=== PATIENT | female | born 1990 | race American Indian/Alaskan Native ===

== ENCOUNTER 2017-01-04 02:33 | Outpatient (CLI) | payer MEDICAID ==
[2017-01-04 02:55] VITALS: BP 116/73
[2017-01-04] MEDS ORDERED: LACTATED RINGERS 1,000 ML IV ONE (03:32)
[2017-01-04] MEDS ORDERED: TYLENOL PO PRN (03:32)
--- NOTE | 2017-01-04 08:13 | Ultrasound Report ---
BIOPHYSICAL PROFILE: INDICATION: Evaluate for abruption. COMPARISON: None similar. TECHNIQUE: Transabdominal ultrasound with Doppler interrogation. 2 - breathing movements 2 - movements 2 - posture and tone 2 - Qualitative amniotic fluid volume 8 - TOTAL SCORE OF POSSIBLE 8 Heart Rate (bpm) 138
--- NOTE | 2017-01-04 08:17 | Ultrasound Report ---
OB LIMITED INDICATION: Evaluate for abruption. COMPARISON: 02/24/2016 TECHNIQUE: Transabdominal grayscale ultrasound with Doppler interrogation. Gestation: Silva Position: Cephalic Amniotic Fluid: Decreased (< 7 cm) JOANNA = 6.8 cm Placenta: Anterior; no evidence of abruption. Placental Grade: I Heart Rate: 131 BPM
== END 2017-01-04 08:30 | disposition home or self-care (01) ==
LOC: TRG 02:33 → LD 04:56 → TRG 08:30
PROVIDERS: ATTEND Obstetrics & Gynecology
DX: Z34.93 Encounter for supervision of normal pregnancy, unspecified, third trimester (principal); Z3A.37 37 weeks gestation of pregnancy
CPT/HCPCS: 59025; 76815; 76819; 96360; J7120

== ENCOUNTER 2017-01-04 08:56 | Emergency (ER) | payer MEDICAID ==
[2017-01-04 09:13] VITALS: BP 118/77
[2017-01-04] MEDS ORDERED: TYLENOL PO ONE (11:15)
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
[2017-01-04] MEDS ORDERED: MORPHINE IV ONE (12:34)
[2017-01-04] MEDS ORDERED: ZOFRAN IV ONE (12:34)
[2017-01-04] MEDS ORDERED: FUL-GLO OP ONE (13:51)
[2017-01-04] MEDS ORDERED: TETRACAINE 0.5% OU ONE (13:51)
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
== END 2017-01-04 15:36 | disposition home or self-care (01) ==
LOC: ED 08:56
DX: O9A.22 Injury, poisoning and certain other consequences of external causes complicating childbirth (principal); H11.31 Conjunctival hemorrhage, right eye; S00.11XA Contusion of right eyelid and periocular area, initial encounter; Z3A.32 32 weeks gestation of pregnancy; Y04.8XXA Assault by other bodily force, initial encounter; Y93.89 Activity, other specified; Y92.89 Other specified places as the place of occurrence of the external cause; Y99.8 Other external cause status
CPT/HCPCS: 70150; 96374; 96375; 99283; J2270; J2405

== ENCOUNTER 2017-01-15 22:56 | Inpatient (IN) | payer MEDICAID ==
[2017-01-15] MEDS ORDERED: LACTATED RINGERS 1,000 ML ONE (23:46)
[2017-01-15] MEDS ORDERED: POLYCILLIN/NS 2 GM/100 ML 2 GM/100 ML BAG IV ONE (23:47)
[2017-01-15] MEDS ORDERED: STADOL ONE (23:49)
[2017-01-15] MEDS ORDERED: POLYCILLIN IM ONE (23:59)
[2017-01-16] MEDS ORDERED: STADOL IV PRN (00:02)
[2017-01-16 00:19] LABS: Hematocrit 33.1 % (30.3-42.9); Hemoglobin 10.5 gm/dl (10.1-14.3); Mean Corpuscular HGB Conc 32 % (30-34); Mean Corpuscular Hemoglobin 26 pg (28-32); Mean Corpuscular Volume 84 fl (79-97); Platelet Count 265 K/mm3 (140-440); Red Blood Count 3.96 M/mm3 (3.65-5.03); Red Cell Distribution Width 15.7 % (13.2-15.2); White Blood Count 10.5 K/mm3 (4.5-11.0)
[2017-01-16] MEDS ORDERED: XYLOCAINE 2% INFILTRATI ONE (00:22)
[2017-01-16] MEDS ORDERED: BRETHINE IVP PRN (00:22)
[2017-01-16] MEDS ORDERED: SUBLIMAZE IV PRN (00:22)
[2017-01-16] MEDS ORDERED: NARCAN 0.4 MG/1 ML IV PRN ×3 (00:22→05:25)
[2017-01-16] MEDS ORDERED: PHENERGAN PO PRN (00:22)
[2017-01-16] MEDS ORDERED: NUBAIN IV PRN (00:22)
[2017-01-16] MEDS ORDERED: ZOFRAN IV PRN ×2 (00:22→05:25)
[2017-01-16] MEDS ORDERED: BRETHINE SUB-Q PRN (00:22)
[2017-01-16] MEDS ORDERED: MINERAL OIL PO PRN (00:22)
--- NOTE | 2017-01-16 00:34 | History and Physical Report ---
History of Present Illness Date of examination: 01/16/17 Date of admission: 01/15/17 23:12 Chief complaint: contractions History of present illness: This is a 26 yo at 39+ 2 weeks came in c/o contractions since 8pm. she has good fm no vb no leaking. no other complaints. She was checked by nurse and noted to be 5/80/-2. She was admitted to labor and delivery. 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 denies: smoking, alcohol abuse, prescription drug abuse - Obstetrical History Expected Date of Delivery: 01/18/17 Actual Gestation: 39 Week(s) 5 Day(s) : 4 Para: 1 Hx # Term Pregnancies: 1 Number of Pregnancies: 0 Spontaneous Abortions: 1 Induced : 1 Number of Living Children: 1 Medications and Allergies Allergies Allergy/AdvReac Type Severity Reaction Status Date / Time No Known Allergies Allergy Unverified 06/23/13 14:09 Home Medications Medication Instructions Recorded Confirmed Last Taken Type Nitrofurantoin [place]/M-Cryst 100 mg PO Q12HR #20 capsule 02/24/16 Unknown Rx [Macrobid CAP] Acetaminophen [Non-Aspirin Pain 500 mg PO Q8H PRN #12 tablet 01/04/17 Unknown Rx Relief] Active Meds: Active Medications Butorphanol Tartrate (Stadol) 2 mg IV Q2H PRN PRN Reason: Labor Pain Lactated Ringer's (Lactated Ringers) 1,000 mls @ 125 mls/hr IV DIRECT ADRY Review of Systems Genitourinary: contractions - Vital Signs Vital signs: Vital Signs Pulse BP Pulse Ox 119 H 111/71 96 01/15/17 23:14 01/15/17 23:14 01/15/17 23:14 Temp Pulse Resp BP Pulse Ox 119 H 24 111/71 96 01/15/17 23:14 01/15/17 23:55 01/15/17 23:14 01/15/17 23:14 - Physical Exam Breasts: Positive: deferred, normal Cardiovascular: Regular rate, Normal S1 Lungs: Positive: Clear to auscultation, Normal air movement Abdomen: Positive: normal appearance, soft, normal bowel sounds. Negative: distention, tenderness, guarding Genitourinary (Female): Positive: normal external genitalia, normal perenium Vulva: both: normal Vagina: Positive: normal moisture Uterus: Positive: normal size, enlarged Anus/Rectum: Positive: normal perianal skin, heme negative Extremities: Positive: normal. Negative: tenderness, edema Deep Tendon Reflex Grade: Normal +2 - Obstetrical FHR: category 1 Uterine Contraction Monitor Mode: External Cervical Dilatation: 5 Cervical Effacement Percentage: 80 station: -2 Uterine Contraction Pattern: Regular Uterine Tone Measurement Phase: Contraction Uterine Contraction Intensity: Moderate Results Result Diagrams: 01/15/17 23:30 Abnormal lab results 01/15/17 Range/Units 23:30 MCH 26 L (28-32) pg RDW 15.7 H (13.2-15.2) % All other labs normal. Assessment and Plan A/P IUP 39+2 weeks, term Active labor No evidence of HSV outbreak nor lesions GBS+ Amp initiated Offer epidural Expect vaginal delivery
[2017-01-16] MEDS ORDERED: ePHEDrine SULFATE ONE ×2 (00:54→01:59)
[2017-01-16] MEDS ORDERED: PITOCin/NS 30 UNIT/500ML 30 UNITS/500 ML BAG IV SCH ×2 (01:00)
[2017-01-16] MEDS ORDERED: PITOCin/NS 20 UNIT/1000ML DRIP 20 UNITS/1,000 ML BAG IV SCH ×3 (01:00→06:00)
[2017-01-16] MEDS ORDERED: LACTATED RINGERS 1,000 ML IV SCH ×3 (01:00→06:00)
[2017-01-16] MEDS ORDERED: NARCAN 2 MG/2 ML IV PRN (01:24)
[2017-01-16] MEDS ORDERED: ePHEDrine SULFATE IV PRN (01:24)
--- NOTE | 2017-01-16 01:24 | Anesthesia Consultation ---
Anesthesia Consult and Med Hx Date of service: 01/16/17 - Airway Anesthetic Teeth Evaluation: Good ROM Head & Neck: Adequate Mental/Hyoid Distance: Adequate Mallampati Class: Class II Intubation Access Assessment: Probably Good - Pulmonary Exam CTA: Yes - Cardiac Exam Cardiac Exam: RRR - Pre-Operative Health Status ASA Pre-Surgery Classification: ASA2 Proposed Anesthetic Plan: Epidural, Spinal - Pulmonary Hx Asthma: No COPD: No Hx Pneumonia: No - Cardiovascular System Hx Hypertension: No - Central Nervous System Hx Seizures: No Hx Psychiatric Problems: No - Endocrine Hx Renal Disease: No Hx End Stage Renal Disease: No Hx Hypothyroidism: No Hx Hyperthyroidism: No - Hematic Hx Anemia: No Hx Sickle Cell Disease: No - Other Systems Hx Alcohol Use: No Hx Obesity: Yes - Additional Comments Anesthesia Medical History Comments: +IUP
[2017-01-16] MEDS: ePHEDrine SULFATE IV PRN ×2 (01:30→01:40)
[2017-01-16] MEDS ORDERED: fentaNYL-BUPIV 2 MCG/ML-0.125% 200 MCG/100 ML BAG EPIDURAL SCH (02:00)
[2017-01-16] MEDS ORDERED: POLYCILLIN/NS 1 GM/50 ML 1 GM/50 ML BAG IV SCH (04:00)
[2017-01-16] MEDS ORDERED: BICITRA ONE (04:10)
[2017-01-16] MEDS ORDERED: PEPCID IV ONE ×3 (04:10→05:48)
[2017-01-16] MEDS ORDERED: XYLOCAINE MPF 2% ONE ×3 (04:12→05:09)
[2017-01-16] MEDS ORDERED: REGLAN ONE (04:12)
[2017-01-16] MEDS ORDERED: ANCEF/STERILE WATER 2 GM/20 ML IV ONE (04:13)
[2017-01-16] MEDS ORDERED: WATER FOR IRRIG STERILE IR ONE (04:15)
[2017-01-16] MEDS ORDERED: NACL 0.9% IR ONE (04:15)
[2017-01-16] MEDS ORDERED: VERSED ONE (04:21)
[2017-01-16] MEDS ORDERED: ZOFRAN ONE (04:24)
[2017-01-16] MEDS ORDERED: SUBLIMAZE ONE (04:43)
[2017-01-16] MEDS ORDERED: MORPHINE ONE (04:47)
--- NOTE | 2017-01-16 05:19 | Procedure Note ---
OB Delivery Note - Delivery Date of Delivery: 01/16/17 Surgeon: MARIE FRAGA Estimated blood loss: other (700cc) - Section Preop diagnosis: nonreassuring FHR tracing Postop diagnosis: same section procedure: section Disposition: PACU Complications: none Narrative: see op report - Infant B at 1 minute: 8 at 5 minutes: 8 Gender: Male
--- NOTE | 2017-01-16 05:23 | Operative Report ---
Operative Report Operative Report: PREOPERATIVE DIAGNOSES: 1. Intrauterine at term. 2. NRFHT 3. Intolerance to labor 4. Remote from delivery POSTOPERATIVE DIAGNOSES: 1. -4 RON PROCEDURE PERFORMED: Primary low-transverse section. ANESTHESIA: Epidural. ESTIMATED BLOOD LOSS: 700 mL. COMPLICATIONS: None. FINDINGS: Male in cephalic presentation, OP position, weight 7 pounds 8 ounces. Apgars were 8 at 1 minute and 8 at 5 minutes. Normal uterus, tubes, and ovaries were noted. INDICATIONS: The patient is a 26-year-old 4, para 1 female, who presented to labor and delivery in active labor . The patient progressed to 6 cm , at which time, Pitocin was started. She subsequently progressed to 6 cm, started have bradycardia and repetitive late decels . A decision was made to proceed with a primary low transverse section. The procedure was described to the patient in detail including possible risks of bleeding, infection, injury to surrounding organs, and possible need for further surgery. Informed consent was obtained prior to proceeding with the procedure. PROCEDURE NOTE: The patient was taken to the operating room where epidural anesthesia was found to be adequate. The patient was prepped and draped in the usual sterile fashion in the dorsal supine position with a left-nicole tilt. A Pfannenstiel skin incision was made with the scalpel and carried through to the underlying layer of fascia using the Bovie. The fascia was incised in the midline and extended laterally using Armenta scissors. Mariangel clamps were used to elevate the superior aspect of the fascial incision, which was elevated, and the underlying rectus muscles were dissected off bluntly and using Armenta scissors. Attention was then turned to the inferior aspect of the fascial incision, which in similar fashion was grasped with Mariangel clamps, elevated, and the underlying rectus muscles were dissected off bluntly and using Armenta scissors. The rectus muscles were dissected in the midline. The peritoneum was bluntly dissected, entered, and extended superiorly and inferiorly with good visualization of the bladder. The bladder blade was inserted. The vesicouterine peritoneum was identified with pickups and entered sharply using Metzenbaum scissors. This incision was extended laterally and the bladder flap was created digitally. The bladder blade was reinserted. The lower uterine segment was incised in a transverse fashion using the scalpel and extended using manual traction. Clear fluid was noted. The infant was subsequently delivered atraumatically. The nose and mouth were bulb suctioned. The cord was clamped and cut. The was subsequently handed to the awaiting nursery nurse. Next, cord blood was obtained per the patient's request for cord blood donation, which took several minutes to perform. Subsequent to the collection of this blood, the placenta was removed spontaneously intact with a 3-vessel cord noted. The uterus was exteriorized and cleared of all clots and debris. The uterine incision was repaired in 2 layers using 0 chromic suture. Hemostasis was visualized. The uterus was returned to the abdomen. The pelvis was copiously irrigated. The uterine incision was reexamined and was noted to be hemostatic. The rectus muscles were reapproximated in the midline using 3-0 Vicryl. The fascia was closed with 0 Vicryl, the subcutaneous layer was closed with 3-0 plain gut, and the skin was closed with west. Sponge, lap , and instrument counts were correct x2. The patient was stable at the completion of the procedure and was subsequently transferred to the recovery room in stable condition.
[2017-01-16] MEDS ORDERED: TUCKS PAD TP PRN (05:25)
[2017-01-16] MEDS ORDERED: MYLICON PO PRN (05:25)
[2017-01-16] MEDS ORDERED: PERCOCET 5/325 PO PRN (05:25)
[2017-01-16] MEDS ORDERED: SENOKOT PO PRN (05:25)
[2017-01-16] MEDS ORDERED: LANSINOH TP PRN (05:25)
[2017-01-16] MEDS ORDERED: NORCO 5/325 PO PRN (05:25)
[2017-01-16] MEDS ORDERED: ANUCORT-HC PR PRN (05:25)
[2017-01-16] MEDS ORDERED: PHENERGAN PR PRN (05:25)
[2017-01-16] MEDS ORDERED: MORPHINE IV PRN ×2 (05:25)
[2017-01-16] MEDS ORDERED: TORADOL IV PRN (05:25)
--- NOTE | 2017-01-16 05:35 | Post Anesthesia Evaluation ---
- Post Anesthesia Evaluation Patient Participated: Yes Airway Patent: Yes Stable Respiratory Function: Yes Nausea/Vomiting: No Temp > 96.8F: Yes Pain Manageable: Yes Adequeate Hydration: Yes Anesthesia Complications: No Block Receding Appropriately: Yes Patient on Ventilator: No
[2017-01-16] MEDS ORDERED: BENADRYL IV PRN (05:36)
[2017-01-16] MEDS ORDERED: BICITRA PO ONE (05:48)
[2017-01-16] MEDS ORDERED: REGLAN IV ONE (05:48)
[2017-01-16] MEDS ORDERED: ANCEF/STERILE WATER 2 GM/20 ML 2 GM/20 ML SYRINGE IV NR (06:00)
[2017-01-16] MEDS ORDERED: POLYCILLIN/NS 2 GM/100 ML 2 GM/100 ML BAG IV SCH (06:00)
[2017-01-16] MEDS ORDERED: SODIUM CHLORIDE FLUSH SYRINGE 10 ML IV NR (06:00)
[2017-01-16] MEDS: TORADOL IV PRN ×2 (06:02→18:40)
[2017-01-16] MEDS ORDERED: MORPHINE PCA 30MG/30ML IV SCH (07:00)
[2017-01-16] MEDS: FEOSOL PO SCH (14:28)
[2017-01-16] MEDS: PRENATAL VITAMIN PO SCH (14:29)
[2017-01-16] MEDS ORDERED: D5LR 1,000 ML IV SCH (16:00)
[2017-01-16 18:45] LABS: Hematocrit 27.6 % (30.3-42.9); Hemoglobin 8.7 gm/dl (10.1-14.3)
[2017-01-16] MEDS: MOTRIN PO PRN (23:56)
[2017-01-17] MEDS: PERCOCET 5/325 PO PRN ×4 (05:06→21:27)
[2017-01-17] MEDS ORDERED: M-M-R II VACCINE SUB-Q ONE (06:00)
[2017-01-17] MEDS ORDERED: BOOSTRIX IM ONE (06:00)
[2017-01-17] MEDS: MOTRIN PO PRN ×3 (07:24→21:28)
[2017-01-17] MEDS: MILK OF MAGNESIA PO PRN (07:24)
--- NOTE | 2017-01-17 08:49 | Progress Note ---
Assessment and Plan A/P POD#1 s/p primary lstcs encourage ambulation 3x daily slowly increase diet distended - need regimen mom, [place] , etc VSS iron for anemia h/h 10.5/33.1--8.7/27.6 nexplanon for cotnrol B+ no rhogam indicated continue post op care Subjective - Subjective Date of service: 01/17/17 Principal diagnosis: s/p emergency c/sec for NRFHT Interval history: This is a 26 yo at 39+ 2 weeks came in c/o contractions since 8pm. she has good fm no vb no leaking. no other complaints. She was checked by nurse and noted to be 5/80/-2. She was admitted to labor and delivery. 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) UTI treated on suppression Non compliance, limited care Incarcerated False ID /traffic violation Anemia -on iron GBS + Transfer in at 31 weeks Patient reports: appetite normal, voiding normally, pain well controlled, ambulating normally, no flatus, no bowel movement [place]: doing well, bottle feeding Objective - Vital Signs Latest vital signs: Vital Signs Temp Pulse Resp BP 01/17/17 00:00 98.6 F 77 16 114/74 01/16/17 20:00 98.6 F 69 16 111/73 01/16/17 19:35 18 01/16/17 18:00 16 01/16/17 17:00 98.0 F 92 H 20 105/63 01/16/17 16:11 16 01/16/17 13:45 20 01/16/17 12:09 98.8 F 88 18 106/60 01/16/17 12:00 20 01/16/17 10:15 24 Intake and Output 01/16/17 01/17/17 01/17/17 22:59 06:59 14:59 Intake Total 810 1000 Output Total 1050 Balance -240 1000 Intake: IV 450 1000 D5lr 1,000 ml @ 125 mls/ 1000 hr IV DIRECT ADRY Rx#: [id number] PITOCin/NS 20 UNIT/1000ML 450 DRIP 20 units In 1,000 ml @ 125 mls/hr IV DIRECT ADRY Rx#:[id number] Oral 240 Intake, Free Water 120 Output: Urine 1050 Indwelling Catheter 450 Void 600 Other: Total, Intake Amount 240 Total, Output Amount 600 Voiding Method Toilet # Voids Void 1 - Exam Breasts: Present: normal Cardiovascular: Present: Regular rate, Normal S1 Lungs: Present: Clear to auscultation, Normal air movement Abdomen: Present: normal appearance, soft, distention, abnormal bowel sounds. Absent: tenderness Uterus: Present: normal, firm, fundal height below umbilicus. Absent: bogginess , tenderness Extremities: Present: normal Deep Tendon Reflex Grade: Normal +2 Incision: Present: normal, dry, dressed - Labs Labs: Abnormal lab results 01/16/17 Range/Units 18:22 Hgb 8.7 L (10.1-14.3) gm/dl Hct 27.6 L (30.3-42.9) %
[2017-01-17] MEDS: PRENATAL VITAMIN PO SCH (12:17)
[2017-01-17] MEDS: FEOSOL PO SCH (12:17)
[2017-01-18] MEDS: PERCOCET 5/325 PO PRN ×4 (05:48→18:13)
[2017-01-18] MEDS: MOTRIN PO PRN ×2 (05:49→13:50)
[2017-01-18] MEDS: MILK OF MAGNESIA PO PRN (05:51)
--- NOTE | 2017-01-18 08:46 | Progress Note ---
Assessment and Plan A: POD#2 s/p primary section, Delayed return of bowel function, Asymptomatic anemia P: Milk of Magnesia q6h, Magnesium citrate if no bowel movement this afternoon, abdominal binder. Anticipate discharge tomorrow. Subjective - Subjective Date of service: 01/18/17 Principal diagnosis: s/p emergency c/sec for NRFHT Interval history: No overnight events. Patient reports: appetite normal, pain well controlled, flatus (minimal ), ambulating normally, no dizzy ambulation, no bowel movement, no nauseated : doing well Objective - Vital Signs Latest vital signs: Vital Signs Temp Pulse Resp BP 01/18/17 00:00 98.6 F 77 16 121/63 01/17/17 16:15 98.7 F 71 18 114/63 01/17/17 12:16 20 Intake and Output 01/17/17 01/18/17 01/18/17 22:59 06:59 14:59 Intake Total 480 550 Balance 480 550 Intake: Oral 480 250 Intake, Free Water 300 Other: Total, Intake Amount 480 250 # Voids Void 1 - Exam Breasts: Present: deferred Cardiovascular: Present: Regular rate Lungs: Present: Clear to auscultation Abdomen: Present: soft, distention (moderate), normal bowel sounds Uterus: Present: fundal height below umbilicus Extremities: Present: normal Incision: Present: intact
[2017-01-18] MEDS ORDERED: MILK OF MAGNESIA PO PRN (09:30)
[2017-01-18] MEDS: PRENATAL VITAMIN PO SCH (09:32)
[2017-01-18] MEDS: FEOSOL PO SCH (09:32)
[2017-01-18] MEDS: TRIPLE ANTIBIOTIC TP SCH ×3 (09:33→20:00)
[2017-01-18] MEDS ORDERED: CITRATE OF MAGNESIA PO ONE (13:00)
[2017-01-19] MEDS: PERCOCET 5/325 PO PRN ×2 (08:18→16:40)
[2017-01-19] MEDS: MOTRIN PO PRN ×2 (08:18→13:48)
[2017-01-19] MEDS: TRIPLE ANTIBIOTIC TP SCH ×2 (08:19→13:50)
--- NOTE | 2017-01-19 08:46 | Progress Note ---
Assessment and Plan - Patient Problems (1) Active labor at term Current Visit: Yes Status: Acute Plan to address problem: patient doing well discharge home Subjective - Subjective Date of service: 01/19/17 Principal diagnosis: s/p emergency c/sec for NRFHT Interval history: Patient is tolerating a regular diet. Pain is well controlled. Patient reports: appetite normal, voiding normally, pain well controlled [place]: doing well Objective - Vital Signs Latest vital signs: Vital Signs Temp Pulse Resp BP 01/19/17 08:29 98.5 F 74 18 114/65 01/19/17 08:18 20 01/19/17 00:00 98.6 F 69 16 121/74 01/18/17 18:13 18 01/18/17 16:20 98.2 F 75 20 109/68 01/18/17 08:45 99.1 F 86 18 114/74 Intake and Output 01/18/17 01/19/17 01/19/17 22:59 06:59 14:59 Intake Total 600 950 Balance 600 950 Intake: Oral 600 400 Intake, Free Water 550 Other: Total, Intake Amount 360 200 # Voids Void 1 # Bowel Movements 1 - Exam Abdomen: Present: normal appearance, soft
--- NOTE | 2017-01-19 08:47 | Discharge Summary ---
Providers - Providers Date of Admission: 01/15/17 23:12 Date of discharge: 01/19/17 Attending physician: MARIE FRAGA MD Primary care physician: MARIE FRAGA MD Hospitalization Reason for admission: active labor Delivery: Procedure: section, primary low transverse Incision: normal Discharge diagnosis: IUP at term delivered baby: male Hospital course: Admitted in active labor. intolerance to labor. Underwent a delivery. complicated by slow return of bowel function. Condition at discharge: Good Disposition: DC-01 TO HOME OR SELFCARE - Discharge Diagnoses (1) Active labor at term Status: Acute Plan - Discharge Medications Prescriptions: Docusate Sodium [Colace] 100 mg PO BID PRN #30 capsule PRN Reason: constipation Ferrous Sulfate [Feosol 325 MG tab] 325 mg PO BID #30 tablet Ibuprofen [Motrin] 600 mg PO Q8H PRN #30 tablet PRN Reason: Pain oxyCODONE /ACETAMINOPHEN [Percocet 5/325] 1 tab PO Q6HR PRN #30 tablet PRN Reason: Pain - Provider Discharge Summary Activity: no sex for 6 weeks, no heavy lifting 4 weeks, no strenuous exercise Diet: routine Instructions: routine Additional instructions: [] Smoking cessation referral if applicable(refer to patient education folder for contact #) [] Refer to [facility] Booklet Call your doctor immediately for: * Fever > 100.5 * Heavy vaginal bleeding ( >1 pad per hour) * Severe persistent headache * Shortness of breath * Reddened, hot, painful area to leg or breast * Drainage or odor from incision. * Keep incision clean and dry at all times and follow doctor's instructions regarding bathing/showering followup in 2 weeks for incision check - Follow up plan
[2017-01-19] MEDS: PRENATAL VITAMIN PO SCH (09:58)
[2017-01-19] MEDS: FEOSOL PO SCH (09:58)
[2017-01-19 17:35] VITALS: BP 118/68
== END 2017-01-19 17:45 | disposition home or self-care (01) | DRG 765 ==
LOC: TRG 22:56 → LD 23:12 → APU 01-16 08:33 → OB 01-16 08:52
PROVIDERS: ADMIT Obstetrics & Gynecology; ATTEND Obstetrics & Gynecology
PROC: 10D00Z1 Extraction of Products of Conception, Low, Open Approach (ICD-10-PCS; principal; 2017-01-16)
PROC: 3E0234Z Introduction of Serum, Toxoid and Vaccine into Muscle, Percutaneous Approach (ICD-10-PCS; 2017-01-17)
DX: O76 Abnormality in fetal heart rate and rhythm complicating labor and delivery (principal); O98.52 Other viral diseases complicating childbirth; O99.824 Streptococcus B carrier state complicating childbirth; O99.02 Anemia complicating childbirth; D64.9 Anemia, unspecified; O99.214 Obesity complicating childbirth; E66.9 Obesity, unspecified; Z3A.39 39 weeks gestation of pregnancy; Z37.0 Single live birth; Z87.440 Personal history of urinary (tract) infections; Z23 Encounter for immunization; Z68.34 Body mass index [BMI] 34.0-34.9, adult; B00.9 Herpesviral infection, unspecified; Z79.899 Other long term (current) drug therapy
CPT/HCPCS: 36415; 85014; 85018; 85027; 86592; 86850; 86900; 86901; 88307; 90707; 90715; A6250; C9250; J0290; J0595; J0690; J1885; J2250; J2270; J2300; J2405; J2590; J2765; J3010; J7120; J7121

== ENCOUNTER 2017-06-27 02:42 | Emergency (ER) | payer SELFPAY | END 2017-06-27 04:05 | disposition left against medical advice (07) | LOC: EDSEX → EDBD → ED 02:42 | DX: Z53.21 Procedure and treatment not carried out due to patient leaving prior to being seen by health care provider (principal) ==

== ENCOUNTER 2017-08-25 16:09 | Emergency (ER) | payer SELFPAY ==
[2017-08-25 20:19] LABS: Bilirubin,Urine NEG (Negative); Blood,Urine NEG (Negative); Color,Urine Yellow (Yellow); Protein,Urine <15 mg/dL mg/dL (Negative); Urobilinogen,Urine < 2.0 mg/dL (<2.0)
[2017-08-25 20:53] LABS: Basophils % (Auto) 0.2 % (0.0-1.8); Eosinophils # (Auto) 0.2 K/mm3 (0.0-0.4); Eosinophils % (Auto) 3.2 % (0.0-4.3); Hematocrit 34.8 % (30.3-42.9); Hemoglobin 11.7 gm/dl (10.1-14.3); Lymphocytes # (Auto) 2.4 K/mm3 (1.2-5.4); Lymphocytes % (Auto) 37.7 % (13.4-35.0); Mean Corpuscular HGB Conc 34 % (30-34); Mean Corpuscular Hemoglobin 31 pg (28-32); Mean Corpuscular Volume 93 fl (79-97); Monocytes # (Auto) 0.4 K/mm3 (0.0-0.8); Monocytes % (Auto) 6.5 % (0.0-7.3); Platelet Count 232 K/mm3 (140-440); Red Blood Count 3.73 M/mm3 (3.65-5.03); Red Cell Distribution Width 12.7 % (13.2-15.2)
[2017-08-25 21:23] LABS: BUN/Creatinine Ratio 10; Blood Urea Nitrogen 5 mg/dL (7-17); Calcium 8.7 mg/dL (8.4-10.2); Hemolysis Index 2
[2017-08-25] MEDS ORDERED: NACL 0.9% 1000 ML 1,000 ML IV ONE (21:23)
--- NOTE | 2017-08-25 21:30 | Emergency Department Report ---
Blank Doc - Documentation Documentation: Patient is 27 years old and is in early stages of and is presenting with 7 days of vaginal bleeding. Patient states the bleeding is sometimes having sometimes not. Patient states she has some lower abdominal crampiness and mild dysuria as well. Patient will be sent for ultrasound and urinalysis will be done as well.
[2017-08-25] MEDS ORDERED: TYLENOL PO ONE (22:32)
[2017-08-25] MEDS ORDERED: TYLENOL ONE (22:33)
[2017-08-25] MEDS ORDERED: LIDOCAINE VISCOUS 2% ONE (23:11)
[2017-08-25] MEDS ORDERED: LIDOCAINE VISCOUS 2% PO ONE (23:12)
--- NOTE | 2017-08-25 23:55 | Ultrasound Report ---
FINAL REPORT EXAM: US OB < = 14 WEEKS FETUS HISTORY: vag bleed preg . LMP 06/24/2017 with estimated age 9 weeks 2 days and EDC 03/28/2018. Beta HCG quantitation level 35,098 TECHNIQUE: Ultrasound of the pelvis using transabdominal and transvaginal imaging PRIORS: None. FINDINGS: Uterus: Uterus is enlarged in size and normal and homogeneous in echogenicity without focal fibroid formation. The uterus measures 10.4 x 5.0 x 6.1 cm in size. There is a single irregular shaped early intrauterine gestation noted. Intrauterine gestation: There is a single irregular intrauterine gestation identified with both a pole and yolk sac. Yolk sac is hyperechoic. heart rate is could not be monitored. [place]-rump length measurement of 0.57 cm corresponds to estimated age 6 weeks 3 days with EDC 04/17/2018. There is a large subchorionic avascular hemorrhage noted superior to the gestational sac measuring 3.9 x 0.9 x 1.9 cm. Ovaries: Both ovaries appear normal in size and echogenicity with normal blood flow bilaterally. The right ovary measures 3.2 x 1.7 x 2.2 cm and the left ovary measures 2.7 x 2.1 x 2.2 cm in size. Other: There is no evidence for solid adnexal mass is seen. There is no free fluid in the cul-de-sac. IMPRESSION: Single intrauterine irregularly-shaped gestational sac with an approximate age of 6 weeks 3 days. There is a large subchorionic hemorrhage superior to the gestational sac. Given the gestational age, possibility of demise is can be considered. This should be followed with serial beta HCG levels for confirmation.
--- NOTE | 2017-08-26 00:05 | Emergency Department Report ---
ED HPI - General Chief complaint: Abdominal Pain Stated complaint: ABD PAIN/VAG BLEEDING Time Seen by Provider: 08/25/17 19:23 Source: patient Mode of arrival: Ambulatory Limitations: No Limitations - History of Present Illness Initial comments: This is a 27-year-old female nontoxic, well nourished in appearance, no acute signs of distress presents to the ED with c/o of vaginal bleeding 7 days. Patient also is complaining about cramping and nausea. Patient stated he had a history of miscarriage. Patient states she is currently about 7 weeks . Last menstrual cycle 06/24/17. Patient denies any abdominal pain, vomiting, chest pain, shortness of breath, fever, chills, headache or stiff neck. Patient denies any dizziness or syncopal episode. Patient denies any allergies or significant past medical history. MD Complaint: vaginal bleeding -: days(s) (7) Location: pelvis Radiation: none Severity: mild Severity scale (0 -10): 3 Quality: cramping Consistency: constant Improves with: none Worsens with: none Associated symptoms: vaginal bleeding. denies: nausea/vomiting, vaginal discharge, abdominal pain, dysuria, headache, vision changes, malaise, dysparuenia, rash, seizure, shortness of breath, syncope, weakness Vaginal bleeding: light :: Yes Number of weeks : 7 - Related Data Previous Rx's Medication Instructions Recorded Last Taken Type Nitrofurantoin [place]/M-Cryst 100 mg PO Q12HR #20 capsule 02/24/16 Unknown Rx [Macrobid CAP] Acetaminophen [Non-Aspirin Pain 500 mg PO Q8H PRN #12 tablet 01/04/17 Unknown Rx Relief] Docusate Sodium [Colace] 100 mg PO BID PRN #30 capsule 01/16/17 Unknown Rx Ferrous Sulfate [Feosol 325 MG tab] 325 mg PO BID #30 tablet 01/16/17 Unknown Rx Ibuprofen [Motrin] 600 mg PO Q8H PRN #30 tablet 01/16/17 Unknown Rx oxyCODONE /ACETAMINOPHEN [Percocet 1 tab PO Q6HR PRN #30 tablet 01/16/17 Unknown Rx 5/325] Metoclopramide [Reglan] 10 mg PO TID PRN #20 tab 08/26/17 Unknown Rx Allergies Allergy/AdvReac Type Severity Reaction Status Date / Time No Known Allergies Allergy Unverified 06/23/13 14:09 ED Review of Systems ROS: Stated complaint: ABD PAIN/VAG BLEEDING Other details as noted in HPI Constitutional: denies: chills, fever Eyes: denies: eye pain, eye discharge, vision change ENT: denies: ear pain, throat pain Respiratory: denies: cough, shortness of breath, wheezing Cardiovascular: denies: chest pain, palpitations Endocrine: no symptoms reported Gastrointestinal: abdominal pain. denies: nausea, diarrhea Genitourinary: denies: urgency, dysuria, discharge Musculoskeletal: denies: back pain, joint swelling, arthralgia Skin: denies: rash, lesions Neurological: denies: headache, weakness, paresthesias Psychiatric: denies: anxiety, depression Hematological/Lymphatic: denies: easy bleeding, easy bruising ED Past Medical Hx - Past Medical History Hx Hypertension: No Hx Congestive Heart Failure: No Hx Diabetes: No Hx Deep Vein Thrombosis: No Hx Renal Disease: No Hx Sickle Cell Disease: No Hx Seizures: No Hx Asthma: No Hx COPD: No Hx HIV: No Additional medical history: Vaginal delivery x 1, Miscarriage x 2 - Surgical History Past Surgical History?: No - Social History Smoking Status: Never Smoker Substance Use Type: None - Medications Home Medications: Home Medications Medication Instructions Recorded Confirmed Last Taken Type Nitrofurantoin [place]/M-Cryst 100 mg PO Q12HR #20 capsule 02/24/16 01/16/17 Unknown Rx [Macrobid CAP] Acetaminophen [Non-Aspirin Pain 500 mg PO Q8H PRN #12 tablet 01/04/17 01/16/17 Unknown Rx Relief] Docusate Sodium [Colace] 100 mg PO BID PRN #30 capsule 01/16/17 Unknown Rx Ferrous Sulfate [Feosol 325 MG tab] 325 mg PO BID #30 tablet 01/16/17 Unknown Rx Ibuprofen [Motrin] 600 mg PO Q8H PRN #30 tablet 01/16/17 Unknown Rx oxyCODONE /ACETAMINOPHEN [Percocet 1 tab PO Q6HR PRN #30 tablet 01/16/17 Unknown Rx 5/325] Metoclopramide [Reglan] 10 mg PO TID PRN #20 tab 08/26/17 Unknown Rx ED Physical Exam - General Limitations: No Limitations General appearance: alert, in no apparent distress - Head Head exam: Present: atraumatic, normocephalic - Eye Eye exam: Present: normal appearance Pupils: Present: normal accommodation - ENT ENT exam: Present: normal exam, mucous membranes moist - Neck Neck exam: Present: normal inspection, full ROM - Respiratory Respiratory exam: Present: normal lung sounds bilaterally. Absent: respiratory distress, wheezes, rales, rhonchi, stridor, chest wall tenderness, accessory muscle use, decreased breath sounds, prolonged expiratory - Cardiovascular Cardiovascular Exam: Present: regular rate, normal rhythm, normal heart sounds. Absent: irregular rhythm, systolic murmur, diastolic murmur, rubs, gallop - GI/Abdominal GI/Abdominal exam: Present: soft, normal bowel sounds. Absent: distended, tenderness, guarding, rebound, rigid, diminished bowel sounds - Expanded GI/Abdominal Exam Expanded GI/Abdominal exam: Absent: psoas sign, obturator sign, heel tap sign, Rovsing's sign, tenderness at [place]bur[place]'s Point, ascites - Rectal Rectal exam: Present: deferred - Extremities Exam Extremities exam: Present: normal inspection, full ROM - Back Exam Back exam: Present: normal inspection, full ROM - Neurological Exam Neurological exam: Present: alert, oriented X3, normal gait - Psychiatric Psychiatric exam: Present: normal affect, normal mood - Skin Skin exam: Present: warm, dry, intact, normal color. Absent: rash ED Course Vital Signs 08/25/17 16:16 Temperature 98.5 F Pulse Rate 108 H Respiratory 16 Rate Blood Pressure 105/58 [Right] O2 Sat by Pulse 99 Oximetry - Reevaluation(s) Reevaluation #1: 08/26/17 00:06 Patient is speaking in full sentences with no signs of distress noted. - Consultations Consultation #1: 08/26/17 00:06 Patient has been consulted with Dr. Carrero about patient history, physical exam , and labs and examined and screened patient and agrees to ED plan of care and discharge plan of care. ED Medical Decision Making - Lab Data Result diagrams: 08/25/17 20:45 08/25/17 20:45 - Medical Decision Making This is a 27-year-old female that presents with threatened miscarriage. Patient is stable and was examined by me and Dr. Carrero. Ultrasound has been obtained and dictated with by the radiologist with a impression of single intraureteral irregular shaped just a small sac with approximately age of 6 weeks and 3 days and no heart beat. There is a large hemorrhagic subchronic. Patient was notified of the results with noted by the patient. Patient was instructed to return in 2 days for a serum quantitative test to rule out miscarriage. Patient is Rh+. Labs within normal limits. Patient was referred instructed to Follow-up with a PROGRAM MANAGEMENT ANALYST in 3-5 days or if symptoms worsen and continue return to emergency room as soon as possible. At time of discharge, the patient does not seem toxic or ill in appearance. No acute signs of distress noted. Patient agrees to discharge treatment plan of care. No further questions noted by the patient. Critical care attestation.: If time is entered above; I have spent that time in minutes in the direct care of this critically ill patient, excluding procedure time. ED Disposition Clinical Impression: Threatened miscarriage Disposition: DC-01 TO HOME OR SELFCARE Is pt being admited?: No Does the pt Need Aspirin: No Condition: Stable Instructions: Threatened Miscarriage (ED), Metoclopramide (By mouth) Additional Instructions: Follow-up with a PROGRAM MANAGEMENT ANALYST in 3-5 days or if symptoms worsen and continue return to emergency room as soon as possible. Return in 2 days for a repeat HCG quantitative test and possible Ultrasound. Prescriptions: Metoclopramide [Reglan] 10 mg PO TID PRN #20 tab PRN Reason: Nausea Referrals: PRIMARY CAREMD [Primary Care Provider] - 3-5 Days MARIE FRAGA MD [Staff Physician] - 3-5 Days [facility] [Provider Group] - 3-5 Days [facility] [Outside] - 3-5 Days [facility] [Outside] - 3-5 Days Forms: Work/School Release Form(ED)
[2017-08-26 00:11] VITALS: BP 120/71
== END 2017-08-26 00:15 | disposition home or self-care (01) ==
LOC: ED 16:09
DX: O20.0 Threatened abortion (principal); Z3A.01 Less than 8 weeks gestation of pregnancy
CPT/HCPCS: 36415; 76801; 76817; 80048; 81001; 84702; 85025; 86900; 86901; 96360; 99284; J7030

== ENCOUNTER 2017-08-27 19:39 | Emergency (ER) | payer SELFPAY | END 2017-08-27 19:40 | disposition left against medical advice (07) | LOC: ED 19:39 | DX: N93.9 Abnormal uterine and vaginal bleeding, unspecified (principal); Z53.21 Procedure and treatment not carried out due to patient leaving prior to being seen by health care provider ==

== ENCOUNTER 2017-08-28 14:02 | Emergency (ER) | payer SELFPAY ==
[2017-08-28 15:47] LABS: Mucus,Urine FEW /HPF
[2017-08-28 15:52] LABS: Bilirubin,Urine NEG (Negative); Blood,Urine LG (Negative); Color,Urine Yellow (Yellow); Protein,Urine <15 mg/dL mg/dL (Negative); Urobilinogen,Urine < 2.0 mg/dL (<2.0)
[2017-08-28 15:59] LABS: Basophils # (Auto) 0.1 K/mm3 (0.0-0.1); Basophils % (Auto) 0.7 % (0.0-1.8); Eosinophils # (Auto) 0.1 K/mm3 (0.0-0.4); Eosinophils % (Auto) 1.5 % (0.0-4.3); Hematocrit 34.7 % (30.3-42.9); Hemoglobin 11.5 gm/dl (10.1-14.3); Lymphocytes # (Auto) 2.3 K/mm3 (1.2-5.4); Lymphocytes % (Auto) 28.9 % (13.4-35.0); Mean Corpuscular HGB Conc 33 % (30-34); Mean Corpuscular Hemoglobin 31 pg (28-32); Mean Corpuscular Volume 94 fl (79-97); Monocytes # (Auto) 0.4 K/mm3 (0.0-0.8); Monocytes % (Auto) 5.3 % (0.0-7.3); Platelet Count 248 K/mm3 (140-440); Red Blood Count 3.69 M/mm3 (3.65-5.03)
--- NOTE | 2017-08-28 20:24 | Ultrasound Report ---
FINAL REPORT PROCEDURE: US OB < = 14 WEEKS FETUS TECHNIQUE: Real-time transabdominal sonography of the uterus, placenta, amniotic fluid, adnexa, and fetus was performed with image documentation. Measurements were obtained to determine age/size. M-mode Doppler was used to document heartbeat. CPT 80301 HISTORY: vaginal bleeding COMPARISON: Transvaginal OB ultrasound also performed today. FINDINGS: The report for today's study was generated using images from both the transabdominal and a transvaginal OB ultrasound both of which were performed today. There is a gestational sac visualized in the endometrial canal. Subchorionic hemorrhage appears to be present measuring approximately 3.9 x 0.9 x 1.9 centimeter. Possible pole visualized measuring 4.2 millimeters suggesting an age of 6 week 2 day. Heartbeat is not detected. Yolk sac appears to be visualized. It may be too early to visualize the heartbeat. I cannot exclude intrauterine demise. Right ovary was visualized and showed no abnormality measuring 3.0 x 1.8 x 1.9 centimeter. The left ovary was not visualized. No abnormal adnexal masses are seen on the left.. IMPRESSION: Gestational sac visualized in the endometrial canal as described. A pole appears to be visualize suggesting an age of 6 week and 2 days. heartbeat is not detected. It may be too early to visualize the heartbeat versus intrauterine demise. Large subchorionic hemorrhage appears to be present. Recommend following serial beta HCG levels and follow-up pelvic ultrasound 7-10 days to evaluate for living intrauterine . Left ovary is not visualized. No abnormal adnexal masses are seen on the left. Right ovary is unremarkable.
--- NOTE | 2017-08-28 20:31 | Ultrasound Report ---
FINAL REPORT PROCEDURE: US OB TRANSVAGINAL TECHNIQUE: Real-time transvaginal sonography of the uterus, placenta, amniotic fluid, adnexa, and fetus was performed with image documentation. Measurements were obtained to determine age/size. M-mode Doppler was used to document heartbeat. CPT 83369 HISTORY: vaginal bleeding COMPARISON: Prior transabdominal OB ultrasound also performed today. FINDINGS: The report for today's study was generated using images from both the transabdominal and a transvaginal OB ultrasound both of which were performed today. There is a gestational sac visualized in the endometrial canal within the lower uterine segment. Subchorionic hemorrhage appears to be present measuring approximately 3.9 x 0.9 x 1.9 centimeter. Possible pole visualized measuring 4.2 millimeters suggesting an age of 6 week 2 day. Heartbeat is not detected. Yolk sac appears to be visualized. It may be too early to visualize the heartbeat. I cannot exclude intrauterine demise. Right ovary was visualized and showed no abnormality measuring 3.0 x 1.8 x 1.9 centimeter. The left ovary was not visualized. No abnormal adnexal masses are seen on the left.. IMPRESSION: Gestational sac visualized in the endometrial canal within the lower uterine segment as described. A pole appears to be visualize suggesting an age of 6 week and 2 days. heartbeat is not detected. It may be too early to visualize the heartbeat versus intrauterine demise. Large subchorionic hemorrhage appears to be present. Recommend following serial beta HCG levels and follow-up pelvic ultrasound 7-10 days to evaluate for living intrauterine . Left ovary is not visualized. No abnormal adnexal masses are seen on the left. Right ovary is unremarkable.
--- NOTE | 2017-08-28 23:43 | Emergency Department Report ---
ED HPI - General Chief complaint: Vaginal Bleeding Stated complaint: VAG BLEED/ D&C PER OBGYN Time Seen by Provider: 08/28/17 23:16 Source: patient, old records reviewed Mode of arrival: Ambulatory Limitations: No Limitations - History of Present Illness Initial comments: 27-year-old female presents to the hospital complaining of vaginal bleeding during . She is possibly 7 weeks was here on the with complaints of vaginal bleeding. At that time she had a HCG quantitative 42014, ultrasound showed a single irregularly shaped gestational sac with an approximate age of 6 week 3 days and a large subchorionic hemorrhage superior to the sac. Patient continues to have intermittent vaginal spotting with passes clots and currently this having spotting and malodorous bloody discharge. Mild suprapubic 3/10 cramping pain reported. Positive nausea without vomiting. No fever. MANAGER GYN Dr. Gayle Madsen. Patient has not initiated care - Related Data Previous Rx's Medication Instructions Recorded Last Taken Type Nitrofurantoin [place]/M-Cryst 100 mg PO Q12HR #20 capsule 02/24/16 Unknown Rx [Macrobid CAP] Acetaminophen [Non-Aspirin Pain 500 mg PO Q8H PRN #12 tablet 01/04/17 Unknown Rx Relief] Docusate Sodium [Colace] 100 mg PO BID PRN #30 capsule 01/16/17 Unknown Rx Ferrous Sulfate [Feosol 325 MG tab] 325 mg PO BID #30 tablet 01/16/17 Unknown Rx Ibuprofen [Motrin] 600 mg PO Q8H PRN #30 tablet 01/16/17 Unknown Rx oxyCODONE /ACETAMINOPHEN [Percocet 1 tab PO Q6HR PRN #30 tablet 01/16/17 Unknown Rx 5/325] Metoclopramide [Reglan] 10 mg PO TID PRN #20 tab 08/26/17 Unknown Rx Allergies Allergy/AdvReac Type Severity Reaction Status Date / Time No Known Allergies Allergy Unverified 06/23/13 14:09 ED Review of Systems ROS: Stated complaint: VAG BLEED/ D&C PER OBGYN Other details as noted in HPI ED Past Medical Hx - Past Medical History Previous Medical History?: Yes Hx Hypertension: No Hx Congestive Heart Failure: No Hx Diabetes: No Hx Deep Vein Thrombosis: No Hx Renal Disease: No Hx Sickle Cell Disease: No Hx Seizures: No Hx Asthma: No Hx COPD: No Hx HIV: No Additional medical history: Vaginal delivery x 1, Miscarriage x 2 - Surgical History Past Surgical History?: No Additional Surgical History: x1. D&C with miscarriage - Social History Smoking Status: Never Smoker Substance Use Type: None - Medications Home Medications: Home Medications Medication Instructions Recorded Confirmed Last Taken Type Nitrofurantoin [place]/M-Cryst 100 mg PO Q12HR #20 capsule 02/24/16 01/16/17 Unknown Rx [Macrobid CAP] Acetaminophen [Non-Aspirin Pain 500 mg PO Q8H PRN #12 tablet 01/04/17 01/16/17 Unknown Rx Relief] Docusate Sodium [Colace] 100 mg PO BID PRN #30 capsule 01/16/17 Unknown Rx Ferrous Sulfate [Feosol 325 MG tab] 325 mg PO BID #30 tablet 01/16/17 Unknown Rx Ibuprofen [Motrin] 600 mg PO Q8H PRN #30 tablet 01/16/17 Unknown Rx oxyCODONE /ACETAMINOPHEN [Percocet 1 tab PO Q6HR PRN #30 tablet 01/16/17 Unknown Rx 5/325] Metoclopramide [Reglan] 10 mg PO TID PRN #20 tab 08/26/17 Unknown Rx ED Physical Exam - General Limitations: No Limitations ED Course Vital Signs 08/28/17 08/28/17 08/28/17 14:32 23:54 23:56 Temperature 99.2 F Pulse Rate 105 H 95 H Respiratory 18 20 18 Rate Blood Pressure 120/75 Blood Pressure 121/73 [Left] O2 Sat by Pulse 100 100 Oximetry - Consultations Consultation #1: 08/28/17 23:[address] Marleen Ramirez (MANAGER GYN) who advises follow-up on Wednesday ED Medical Decision Making - Lab Data Result diagrams: 08/28/17 15:44 Lab Results 08/28/17 08/28/17 08/28/17 Range/Units 15:30 15:44 15:44 WBC 7.8 (4.5-11.0) K/mm3 RBC 3.69 (3.65-5.03) M/mm3 Hgb 11.5 (10.1-14.3) gm/dl Hct 34.7 (30.3-42.9) % MCV 94 (79-97) fl MCH 31 (28-32) pg MCHC 33 (30-34) % RDW 13.0 L (13.2-15.2) % Plt Count 248 (140-440) K/mm3 Lymph % (Auto) 28.9 (13.4-35.0) % [place] % (Auto) 5.3 (0.0-7.3) % Eos % (Auto) 1.5 (0.0-4.3) % Baso % (Auto) 0.7 (0.0-1.8) % Lymph # 2.3 (1.2-5.4) K/mm3 [place] # 0.4 (0.0-0.8) K/mm3 Eos # 0.1 (0.0-0.4) K/mm3 Baso # 0.1 (0.0-0.1) K/mm3 Seg Neutrophils % 63.6 (40.0-70.0) % Seg Neutrophils # 5.0 (1.8-7.7) K/mm3 HCG, Quant 61785 H (0-4) mIU/mL Urine Color Yellow (Yellow) Urine Turbidity Clear (Clear) Urine pH 6.0 (5.0-7.0) Ur Specific [place] 1.020 (1.003-1.030) Urine Protein <15 mg/dl (Negative) mg/dL Urine Glucose (UA) Neg (Negative) mg/dL Urine Ketones Neg (Negative) mg/dL Urine Blood Lg (Negative) Urine Nitrite Neg (Negative) Ur Reducing Substances Not Reportable Urine Bilirubin Neg (Negative) Urine Ictotest Not Reportable Urine Urobilinogen < 2.0 (<2.0) mg/dL Ur Leukocyte Esterase Neg (Negative) Urine WBC (Auto) 2.0 (0.0-6.0) /HPF Urine RBC (Auto) 2.0 (0.0-6.0) /HPF U Epithel Cells (Auto) 4.0 (0-13.0) /HPF Urine Mucus Few /HPF Blood Type Antibody Screen 08/28/17 Range/Units 15:49 WBC (4.5-11.0) K/mm3 RBC (3.65-5.03) M/mm3 Hgb (10.1-14.3) gm/dl Hct (30.3-42.9) % MCV (79-97) fl MCH (28-32) pg MCHC (30-34) % RDW (13.2-15.2) % Plt Count (140-440) K/mm3 Lymph % (Auto) (13.4-35.0) % [place] % (Auto) (0.0-7.3) % Eos % (Auto) (0.0-4.3) % Baso % (Auto) (0.0-1.8) % Lymph # (1.2-5.4) K/mm3 [place] # (0.0-0.8) K/mm3 Eos # (0.0-0.4) K/mm3 Baso # (0.0-0.1) K/mm3 Seg Neutrophils % (40.0-70.0) % Seg Neutrophils # (1.8-7.7) K/mm3 HCG, Quant (0-4) mIU/mL Urine Color (Yellow) Urine Turbidity (Clear) Urine pH (5.0-7.0) Ur Specific [place] (1.003-1.030) Urine Protein (Negative) mg/dL Urine Glucose (UA) (Negative) mg/dL Urine Ketones (Negative) mg/dL Urine Blood (Negative) Urine Nitrite (Negative) Ur Reducing Substances Urine Bilirubin (Negative) Urine Ictotest Urine Urobilinogen (<2.0) mg/dL Ur Leukocyte Esterase (Negative) Urine WBC (Auto) (0.0-6.0) /HPF Urine RBC (Auto) (0.0-6.0) /HPF U Epithel Cells (Auto) (0-13.0) /HPF Urine Mucus /HPF Blood Type B POSITIVE Antibody Screen Negative - Radiology Data Radiology results: report reviewed Transvaginal/pelvic ultrasound: Gestational sac in the lower and to be sure canal within the lower uterine segment. A pole is appears to be visualized suggesting anage of 6 weeks and 3 days. No heartbeat detected. Differential includes early IUP versus demise. Large subchorionic hemorrhage present - Medical Decision Making Patient had vaginal bleeding during first trimester Positive IUP Positive increasing beta ACG Large subchorionic hemorrhage H&H stable Rh+ therefore RhoGAM not necessarily Case discussed with MANAGER GYN Follow-up advised Patient eloped without receiving discharge paperwork by was informed of diagnosis, intention to discharge, and need for follow-up on Wednesday with MANAGER GYN - Differential Diagnosis threatened miscarriage, ectopic, subchorionic hemorrhage, miscarriage Critical Care Time: No Critical care attestation.: If time is entered above; I have spent that time in minutes in the direct care of this critically ill patient, excluding procedure time. ED Disposition Clinical Impression: Threatened miscarriage, Subchorionic hematoma in first trimester Disposition: ELOPED Is pt being admited?: No Does the pt Need Aspirin: No Condition: Stable Instructions: Threatened Miscarriage (ED) Additional Instructions: Follow-up with the MANAGER GYN doctor on Wednesday. Return is symptoms worsen as indicated by your discharge instructions. You may take Tylenol as needed for pain Referrals: GAYLE MADSEN MD [Staff Physician] - 08/30/17 Time of Disposition: 00:03
[2017-08-28 23:57] VITALS: BP 121/73
== END 2017-08-28 23:55 | disposition left against medical advice (07) ==
LOC: ED 14:02
DX: O20.0 Threatened abortion (principal); Z3A.01 Less than 8 weeks gestation of pregnancy
CPT/HCPCS: 36415; 76801; 76817; 81001; 84702; 85025; 86850; 86900; 86901; 99284

== ENCOUNTER 2017-09-15 12:28 | Emergency (ER) | payer MEDICAID, OTHER ==
[2017-09-15 14:05] LABS: Basophils % (Auto) 0.7 % (0.0-1.8); Eosinophils # (Auto) 0.3 K/mm3 (0.0-0.4); Eosinophils % (Auto) 5.1 % (0.0-4.3); Hematocrit 32.6 % (30.3-42.9); Hemoglobin 11.1 gm/dl (10.1-14.3); Lymphocytes # (Auto) 2.4 K/mm3 (1.2-5.4); Lymphocytes % (Auto) 40.6 % (13.4-35.0); Mean Corpuscular HGB Conc 34 % (30-34); Mean Corpuscular Hemoglobin 32 pg (28-32); Mean Corpuscular Volume 94 fl (79-97); Monocytes # (Auto) 0.6 K/mm3 (0.0-0.8); Monocytes % (Auto) 9.8 % (0.0-7.3); Platelet Count 203 K/mm3 (140-440); Red Blood Count 3.48 M/mm3 (3.65-5.03); Red Cell Distribution Width 12.5 % (13.2-15.2)
[2017-09-15 14:41] LABS: Bilirubin,Urine NEG (Negative); Blood,Urine NEG (Negative); Color,Urine Yellow (Yellow); Mucus,Urine FEW /HPF; Protein,Urine <15 mg/dL mg/dL (Negative); Urobilinogen,Urine < 2.0 mg/dL (<2.0)
--- NOTE | 2017-09-15 16:44 | Emergency Department Report ---
ED HPI - General Chief complaint: Vaginal Bleeding Stated complaint: VAG BLEED Time Seen by Provider: 09/15/17 16:09 Source: patient Mode of arrival: Ambulatory Limitations: No Limitations - History of Present Illness Initial comments: This is a 27 y.o. female that presents with vaginal bleeding during . LMP 06/2017, A2. Patient reports confirmation of last month here in ER with vaginal bleeding. They did an US and unable to visualize fetus but sac was in place with signs of hemorrhage. Patient reports bleeding started August 14. She was passing clots with heavy bleeding. Bleeding stopped for a few days and restarted. She went to [facility] for a second opinion and they mary labs and US. That US showed a gestational sac without a fetus. They advised her to follow up with MEDICAL SERVICES COORDINATOR. She called Dr. Madsen's office and they advised her to f/u in ER for possible D & C. Bleeding started back 2 days ago. She is currently bleeding and passing small clots with low abdominal cramping intermittently. Denies low back pain, fever, dizziness, weakness, and nausea/ vomiting. MD Complaint: abdominal pain (cramping), vaginal bleeding -: month(s) (1) Location: abdomen (lower abdominal cramping) Radiation: none Severity: moderate Severity scale (0 -10): 4 Quality: cramping Consistency: intermittent Improves with: none Worsens with: none Associated symptoms: vaginal bleeding, abdominal pain. denies: nausea/vomiting , vaginal discharge, dysuria, headache, vision changes, malaise, dysparuenia, rash, seizure, shortness of breath, syncope, weakness Vaginal bleeding: light, clots :: Yes OB History - Current : no complications OB History - Previous Pregnancies: miscarriage (1 miscarriage and 1 ) Last menstrual period: 06/21/17 Pre-chloé care: followed by OB - Related Data : 5 Para: 2 Ab: 2 Previous Rx's Medication Instructions Recorded Last Taken Type RX: Nitrofurantoin Boyle/M-Cryst 100 mg PO Q12HR #20 capsule 02/24/16 Unknown Rx [Macrobid CAP] RX: Acetaminophen [Non-Aspirin 500 mg PO Q8H PRN #12 tablet 01/04/17 Unknown Rx Pain Relief] Docusate Sodium [Colace] 100 mg PO BID PRN #30 capsule 01/16/17 Unknown Rx Ibuprofen [Motrin] 600 mg PO Q8H PRN #30 tablet 01/16/17 Unknown Rx RX: Ferrous Sulfate [Feosol 325 MG 325 mg PO BID #30 tablet 01/16/17 Unknown Rx tab] oxyCODONE /ACETAMINOPHEN [Percocet 1 tab PO Q6HR PRN #30 tablet 01/16/17 Unknown Rx 5/325] Metoclopramide [Reglan] 10 mg PO TID PRN #20 tab 08/26/17 Unknown Rx Allergies Allergy/AdvReac Type Severity Reaction Status Date / Time No Known Allergies Allergy Unverified 06/23/13 14:09 ED Review of Systems ROS: Stated complaint: VAG BLEED Other details as noted in HPI Constitutional: denies: chills, fever Respiratory: denies: cough, shortness of breath, wheezing Cardiovascular: denies: chest pain, palpitations Gastrointestinal: abdominal pain (bilateral lower abdominal pain). denies: nausea, vomiting, diarrhea Genitourinary: other (vaginal bleeding during ). denies: urgency, dysuria, discharge Neurological: denies: headache, weakness, paresthesias Psychiatric: denies: anxiety, depression ED Past Medical Hx - Past Medical History Hx Hypertension: No Hx Congestive Heart Failure: No Hx Diabetes: No Hx Deep Vein Thrombosis: No Hx Renal Disease: No Hx Sickle Cell Disease: No Hx Seizures: No Hx Asthma: No Hx COPD: No Hx HIV: No Additional medical history: Vaginal delivery x 1, Miscarriage x 2 - Surgical History Additional Surgical History: x1. D&C with miscarriage - Social History Smoking Status: Never Smoker Substance Use Type: None - Medications Home Medications: Home Medications Medication Instructions Recorded Confirmed Last Taken Type RX: Nitrofurantoin Boyle/M-Cryst 100 mg PO Q12HR #20 capsule 02/24/16 01/16/17 Unknown Rx [Macrobid CAP] RX: Acetaminophen [Non-Aspirin 500 mg PO Q8H PRN #12 tablet 01/04/17 01/16/17 Unknown Rx Pain Relief] Docusate Sodium [Colace] 100 mg PO BID PRN #30 capsule 01/16/17 Unknown Rx Ibuprofen [Motrin] 600 mg PO Q8H PRN #30 tablet 01/16/17 Unknown Rx RX: Ferrous Sulfate [Feosol 325 MG 325 mg PO BID #30 tablet 01/16/17 Unknown Rx tab] oxyCODONE /ACETAMINOPHEN [Percocet 1 tab PO Q6HR PRN #30 tablet 01/16/17 Unknown Rx 5/325] Metoclopramide [Reglan] 10 mg PO TID PRN #20 tab 08/26/17 Unknown Rx ED Physical Exam - General Limitations: No Limitations General appearance: alert, in no apparent distress - Respiratory Respiratory exam: Present: normal lung sounds bilaterally. Absent: respiratory distress, wheezes, rales, rhonchi, stridor, accessory muscle use - Cardiovascular Cardiovascular Exam: Present: regular rate, normal rhythm, normal heart sounds. Absent: systolic murmur, diastolic murmur, rubs, gallop - GI/Abdominal GI/Abdominal exam: Present: soft, normal bowel sounds. Absent: distended, guarding, rebound, rigid - Back Exam Back exam: Present: normal inspection. Absent: CVA tenderness (R), CVA tenderness (L), rash noted - Neurological Exam Neurological exam: Present: alert, oriented X3, normal gait - Psychiatric Psychiatric exam: Present: normal affect, normal mood - Skin Skin exam: Present: warm, dry, intact, normal color. Absent: rash ED Course Vital Signs 09/15/17 12:39 Temperature 98.6 F Pulse Rate 107 H Respiratory 16 Rate Blood Pressure 117/90 O2 Sat by Pulse 100 Oximetry ED Medical Decision Making - Lab Data Result diagrams: 09/15/17 13:47 - Medical Decision Making 27 y.o. female that presents with vaginal bleeding during and abdominal cramping for 1 month. Patient examined by me. No distress noted. Vitals stable, HR elevated. Obtained CBC, HCG quant, & UA. HCG is trending down in comparison to 08/28 visit, currently 21,292 from 43,483. US of abdomen and pelvis obtained and pending. Chart signed and report given to Jacqui Bautista Critical care attestation.: If time is entered above; I have spent that time in minutes in the direct care of this critically ill patient, excluding procedure time. ED Disposition Clinical Impression: Vaginal bleeding during , Miscarriage, threatened, early Disposition: DC-01 TO HOME OR SELFCARE Is pt being admited?: No Does the pt Need Aspirin: No Condition: Stable Referrals: PRIMARY CARE, [Primary Care Provider] - 3-5 Days
--- NOTE | 2017-09-15 19:24 | Ultrasound Report ---
FINAL REPORT EXAM: US OB TRANSVAGINAL HISTORY: active bleeding during , r/o miscarriage LMP 06/22/2017, beta hCG [id number], on 08/28/2017 it was [id number], on 08/25/2017 it was [id number] TECHNIQUE: Transvaginal pelvic sonographic imaging was performed Comparison: 08/28/2017 FINDINGS: Normally anteverted uterus measures 12.4 x 4.7 x 6.4 centimeters. Within the uterus, there is a large empty gestational sac. Mean sac diameter measures 37.6 millimeters correlating with an estimated gestational age of 9 weeks 1 day. The previously identified subchorionic hemorrhage seen superior to the gestational sac is not identified on the current scan. The endometrium is heterogeneous and poorly delineated to the left of the gestational sac and posterior to it. No pole or yolk sac are identified. Right ovary measures 2.7 x 1.5 x 2.5 centimeters. Left ovary measures 2.6 x 1.7 x 2.4 centimeters. Both ovaries demonstrate small follicles. There is debris in the endocervical canal. IMPRESSION: Large empty gestational sac compatible with estimated gestational age of 9 weeks 1 day. Previous identified subchorionic hemorrhage is no longer identified. No pole or yolk sac. Debris in the cervix. Declining beta HCG. Findings most compatible with in progress/inevitable .
--- NOTE | 2017-09-15 19:26 | Ultrasound Report ---
FINAL REPORT EXAM: US OB < = 14 WEEKS FETUS HISTORY: active bleeding during , r/o miscarriage LMP 06/22/2017, beta hCG 54522, on 08/28/2017 it was [id number], on 08/25/2017 it was [id number] TECHNIQUE: Transvaginal pelvic sonographic imaging was performed Comparison: 08/28/2017 FINDINGS: Normally anteverted uterus measures 12.4 x 4.7 x 6.4 centimeters. Within the uterus, there is a large empty gestational sac. Mean sac diameter measures 37.6 millimeters correlating with an estimated gestational age of 9 weeks 1 day. The previously identified subchorionic hemorrhage seen superior to the gestational sac is not identified on the current scan. The endometrium is heterogeneous and poorly delineated to the left of the gestational sac and posterior to it. No pole or yolk sac are identified. Right ovary measures 2.7 x 1.5 x 2.5 centimeters. Left ovary measures 2.6 x 1.7 x 2.4 centimeters. Both ovaries demonstrate small follicles. There is debris in the endocervical canal. IMPRESSION: IMPRESSION: Normally anteverted uterus measures 12.4 x 4.7 x 6.4 centimeters. Within the uterus, there is a large empty gestational sac. Mean sac diameter measures 37.6 millimeters correlating with an estimated gestational age of 9 weeks 1 day. The previously identified subchorionic hemorrhage seen superior to the gestational sac is not identified on the current scan. The endometrium is heterogeneous and poorly delineated to the left of the gestational sac and posterior to it. No pole or yolk sac are identified. Right ovary measures 2.7 x 1.5 x 2.5 centimeters. Left ovary measures 2.6 x 1.7 x 2.4 centimeters. Both ovaries demonstrate small follicles. There is debris in the endocervical canal. IMPRESSION: Large empty gestational sac compatible with estimated gestational age of 9 weeks 1 day. Previous identified subchorionic hemorrhage is no longer identified. No pole or yolk sac. Debris in the cervix. Declining beta HCG. Findings most compatible with in progress/inevitable .
--- NOTE | 2017-09-15 20:14 | Emergency Department Report ---
Lary Doc - Documentation Documentation: 27-year-old Mexican female Center by Dr. Madsen for evaluation. Patient reports that she's been having vaginal bleeding since August 2009 she states has come here on 320 06/09/2023 and now today. Patient's labs are stable with no signs of anemia. CT scan was done which shows that she does have a uterine sac without a yolk and no pole. The impression is she's having a miscarriage or inevitable . This provided call Dr. Madsen her RELIGIOUS LEADER spoke with him he reports that patient come in tomorrow to scheduled for D&C. I would discuss this with patient and discharged her accordingly.
[2017-09-16 01:57] VITALS: BP 101/71
== END 2017-09-15 20:15 | disposition home or self-care (01) ==
LOC: ED 12:28
DX: O20.0 Threatened abortion (principal); Z3A.08 8 weeks gestation of pregnancy
CPT/HCPCS: 36415; 76801; 76817; 81001; 84702; 85025; 86850; 86900; 86901; 99284

== ENCOUNTER 2017-09-17 12:53 | Observation (INO) | payer MEDICAID ==
[~2017-09-17 12:53] MED LIST: SILVER NITRATE TP ONE
[2017-09-17] MEDS ORDERED: XYLOCAINE MPF 2% ONE (13:00)
[2017-09-17] MEDS ORDERED: DIPRIVAN 10 MG/ML IV ONE (13:00)
--- NOTE | 2017-09-17 13:29 | Anesthesia Consultation ---
Anesthesia Consult and Med Hx Date of service: 09/17/17 - Airway Anesthetic Teeth Evaluation: Chipped (molars) - Pre-Operative Health Status ASA Pre-Surgery Classification: ASA2 (no) Proposed Anesthetic Plan: General - Pulmonary Hx Asthma: No Hx Respiratory Symptoms: Yes (seasonal allergies) COPD: No Hx Pneumonia: No Hx Sleep Apnea: No - Cardiovascular System Hx Hypertension: No - Central Nervous System Hx Seizures: No Hx Psychiatric Problems: No - Endocrine Hx Renal Disease: No Hx End Stage Renal Disease: No Hx Hypothyroidism: No Hx Hyperthyroidism: No - Hematic Hx Anemia: Yes (DURING LAST ) Hx Sickle Cell Disease: No - Other Systems Hx Alcohol Use: No Hx Substance Use: No Hx Cancer: No Hx Obesity: Yes
--- NOTE | 2017-09-17 13:30 | Anesthesia Day of Surgery ---
Anesthesia Day of Surgery - Day of Surgery Patient Examined: Yes Patient H&P Reviewed: Yes Patient is NPO: Yes
[2017-09-17] MEDS ORDERED: VERSED IV NR (13:33)
[2017-09-17] MEDS ORDERED: PEPCID IV NR (13:33)
[2017-09-17] MEDS ORDERED: LACTATED RINGERS 1,000 ML IV SCH (13:33)
[2017-09-17 13:55] LABS: Basophils % (Auto) 0.8 % (0.0-1.8); Eosinophils # (Auto) 0.3 K/mm3 (0.0-0.4); Eosinophils % (Auto) 5.3 % (0.0-4.3); Hematocrit 33.9 % (30.3-42.9); Hemoglobin 11.4 gm/dl (10.1-14.3); Lymphocytes # (Auto) 2.4 K/mm3 (1.2-5.4); Lymphocytes % (Auto) 40.5 % (13.4-35.0); Mean Corpuscular HGB Conc 34 % (30-34); Mean Corpuscular Hemoglobin 32 pg (28-32); Mean Corpuscular Volume 93 fl (79-97); Monocytes # (Auto) 0.4 K/mm3 (0.0-0.8); Monocytes % (Auto) 6.5 % (0.0-7.3); Platelet Count 224 K/mm3 (140-440); Red Blood Count 3.63 M/mm3 (3.65-5.03); Red Cell Distribution Width 12.5 % (13.2-15.2)
[2017-09-17] MEDS ORDERED: ANCEF/STERILE WATER 2 GM/20 ML 2 GM/20 ML SYRINGE IV NR (14:00)
--- NOTE | 2017-09-17 14:03 | Short Stay Summary ---
Short Stay Documentation Date of service: 09/17/17 Narrative H&P: Pt is a 27-year-old female presented to the office complaining of vaginal bleeding during . She is possibly 9 weeks was seen at [facility] and 08/28/17 with complaints of vaginal bleeding. At that time she had a HCG quantitative 62222, ultrasound showed a single irregularly shaped gestational sac with an approximate age of 6 week 3 days and a large subchorionic hemorrhage superior to the sac. She has mild suprapubic 3/10 cramping pain reported, but denies nausea or vomiting. Pelvic u/s 09/15/17 showed a Large empty gestational sac compatible with estimated gestational age of 9 weeks 1 day. Previous identified subchorionic hemorrhage is no longer identified. No pole or yolk sac. Debris in the cervix. Declining beta HCG. Findings most compatible with in progress/inevitable . She is therefore scheduled for a D&C. - History Principal diagnosis: Missed H&P: obtained from office Past Medical History: No medical history Past Surgical History: Social history: no significant social history, single - Allergies and Medications Current Medications: Allergies adhesive Adverse Reaction (Verified 09/17/17 13:59) TEARS SKIN Home Medications Medication Instructions Recorded Confirmed Last Taken Type No Known Home Medications [No 09/17/17 09/17/17 Unknown History Reported Home Medications] Active Medications Famotidine (Pepcid) 20 mg IV PREOP NR Stop: 09/17/17 23:59 Last Admin: 09/17/17 14:00 Dose: 20 mg Lactated Ringer's (Lactated Ringers) 1,000 mls @ 125 mls/hr IV DIRECT ADRY Stop: 09/17/17 23:59 Last Admin: 09/17/17 13:50 Dose: 125 mls/hr Cefazolin Sodium (Ancef/Sterile Water 2 Gm/20 Ml) 2 gm in 20 mls @ 80 mls/hr IV PREOP NR; Protocol - Physical exam General appearance: mild distress HEENT: Atraumatic Lungs: Clear to auscultation Breasts: deferred Heart: Regular rate Gastrointestinal: normal Female Genitourinary: deferred Rectal Exam: deferred Extremities: no ischemia Neurological: Normal gait, Normal speech - Brief post op/procedure progress note Date of procedure: 09/17/17 Pre-op diagnosis: 1. Blighted ovum 2. Missed Post-op diagnosis: same Procedure: D&C Anesthesia: MAC Findings: A 10-12 weeks size uterus with large amounts of POC Surgeon: OSCAR FRAGA Estimated blood loss: other (1200ml) Pathology: list (POC) Specimen disposition: to lab Condition: stable - Hospital course Hospital course: Pt tolerated the D&C and was transfused 1 unit of blood after syncopal episode. Her H/H remained stable @ 7.8/22.7 She will therefore be discharged to home today in stable condition. - Disposition Condition at discharge: Good Disposition: DC- TO HOME OR SELFCARE - Discharge Diagnoses (1) Acute blood loss anemia Status: Resolved (2) S/P D&C (status post dilation and curettage) Status: Resolved Short Stay Discharge Plan Activity: no restrictions Diet: regular Follow up with: STEVEN AGUILERA MD [Primary Care Provider] - 7 Days OSCAR FRAGA MD [Staff Physician] - 7 Days Prescriptions: Ferrous Sulfate [Feosol 325 MG tab] 325 mg PO BID #60 tablet HYDROcodone/APAP 5-325 [Porter 5-325 mg TAB] 1 each PO Q6H PRN #20 tablet PRN Reason: Pain, Moderate (4-6) Ibuprofen [Motrin 600 MG tab] 600 mg PO Q6HR #30 tablet
[2017-09-17] MEDS ORDERED: DILAUDID ONE (14:41)
[2017-09-17] MEDS ORDERED: METHERGINE IM ONE ×2 (14:41→15:13)
[2017-09-17] MEDS ORDERED: ZOFRAN ONE (14:45)
[2017-09-17] MEDS ORDERED: NEO SYNEPHRINE/NS Syringe(OR USE) IV ONE (14:49)
[2017-09-17] MEDS ORDERED: NACL 0.9% 1000 ML 1,000 ML ONE ×4 (15:03→19:12)
[2017-09-17] MEDS ORDERED: LANSINOH TP PRN (15:08)
[2017-09-17] MEDS ORDERED: MILK OF MAGNESIA PO PRN (15:08)
[2017-09-17] MEDS ORDERED: TUCKS PAD TP PRN (15:08)
[2017-09-17] MEDS ORDERED: PHENERGAN PO PRN (15:08)
[2017-09-17] MEDS ORDERED: PHENERGAN PR PRN (15:08)
[2017-09-17] MEDS ORDERED: TYLENOL PO PRN (15:08)
[2017-09-17] MEDS ORDERED: ZOFRAN IV PRN (15:08)
[2017-09-17] MEDS ORDERED: BENADRYL PO PRN (15:08)
[2017-09-17] MEDS ORDERED: NACL 0.9% IR ONE (15:13)
[2017-09-17] MEDS ORDERED: ePHEDrine SULFATE ONE (15:15)
[2017-09-17] MEDS ORDERED: NEO SYNEPHRINE ONE (15:19)
--- NOTE | 2017-09-17 15:19 | Operative Report ---
Operative Report Operative Report: PREOPERATIVE DIAGNOSIS: 1. Blighted ovum 2. Missed POSTOPERATIVE DIAGNOSIS: Same OPERATIVE PROCEDURE: Dilatation and curettage. SURGEON: Yariel Madsen MD ANESTHESIA: Gen. mask ANESTHESIOLOGIST: Dr. Hernandez ESTIMATED BLOOD LOSS: 1200 mL's FINDINGS: A 10-12 week size uterus with moderate amounts of products of conception COMPLICATIONS: hemorrhage COUNTS: Correct x3. PROCEDURE: After the patient was correctly identified, and after general anesthesia was administered, the patient was prepped and draped in the usual sterile fashion and placed in dorsal lithotomy position. First, the bladder was emptied using a straight catheter. Next, a speculum was placed in the vaginal vault and the anterior lip of the cervix was grasped using a single- tooth tenaculum. The uterus was sounded to 12 cm. The cervical os was sequentially dilated, and a 10 mm vaccurette was used to suction blood and products of conception from the uterine cavity. After all the products of conception were removed, she continued to have heavy vaginal bleeding, which was not controlled with IM Methergine or bimanual massage. A Hooper catheter was then placed in the cervical os to provide tamponade, and the bleeding eventually stopped. The procedure was considered complete. All instruments were removed from the vagina, except for Hooper catheter which remained in place. The patient tolerated the procedure well and was transferred to the recovery room in stable condition.
[2017-09-17] MEDS ORDERED: DULCOLAX PR PRN (15:26)
[2017-09-17] MEDS ORDERED: SODIUM CHLORIDE FLUSH SYRINGE 10 ML IV SCH (16:00)
[2017-09-17 16:01] LABS: Mean Corpuscular HGB Conc 33 % (30-34); Mean Corpuscular Hemoglobin 31 pg (28-32); Mean Corpuscular Volume 95 fl (79-97); Platelet Count 296 K/mm3 (140-440); Red Blood Count 2.91 M/mm3 (3.65-5.03); Red Cell Distribution Width 12.2 % (13.2-15.2)
[2017-09-17 16:06] LABS: Hematocrit 27.5 % (30.3-42.9)
[2017-09-17] MEDS ORDERED: NORCO 5/325 ONE (16:48)
[2017-09-17] MEDS: NORCO 5/325 PO PRN (16:49)
[2017-09-17] MEDS ORDERED: NACL 0.9% 500 ML 500 ML IV NR (19:19)
[2017-09-17] MEDS ORDERED: TYLENOL PO NR (19:20)
[2017-09-17] MEDS ORDERED: BENADRYL IV NR (19:20)
[2017-09-17 19:26] LABS: Basophils # (Auto) 0.1 K/mm3 (0.0-0.1); Basophils % (Auto) 0.4 % (0.0-1.8); Eosinophils # (Auto) 0.2 K/mm3 (0.0-0.4); Hematocrit 22.5 % (30.3-42.9); Hemoglobin 7.3 gm/dl (10.1-14.3); Lymphocytes # (Auto) 3.7 K/mm3 (1.2-5.4); Lymphocytes % (Auto) 24.1 % (13.4-35.0); Mean Corpuscular HGB Conc 33 % (30-34); Mean Corpuscular Hemoglobin 31 pg (28-32); Mean Corpuscular Volume 96 fl (79-97); Monocytes % (Auto) 6.2 % (0.0-7.3); Platelet Count 235 K/mm3 (140-440); Red Blood Count 2.34 M/mm3 (3.65-5.03); Red Cell Distribution Width 12.5 % (13.2-15.2)
[2017-09-17] MEDS ORDERED: LACTATED RINGERS 2,000 ML ONE (19:27)
[2017-09-17] MEDS ORDERED: HESPAN 500 ML IV ONE (19:34)
[2017-09-17] MEDS: METHERGINE PO SCH (22:38)
[2017-09-17] MEDS: FEOSOL PO SCH (22:38)
[2017-09-17] MEDS: MOTRIN PO SCH (22:43)
[2017-09-18] MEDS: NORCO 5/325 PO PRN (01:27)
[2017-09-18 03:03] LABS: Hematocrit 22.7 % (30.3-42.9); Hemoglobin 7.8 gm/dl (10.1-14.3)
[2017-09-18] MEDS: MOTRIN PO SCH ×2 (05:50→13:32)
[2017-09-18] MEDS: METHERGINE PO SCH (05:50)
--- NOTE | 2017-09-18 07:46 | Progress Note ---
Assessment and Plan - Patient Problems (1) S/P D&C (status post dilation and curettage) Onset Date: 09/18/17 Current Visit: Yes Status: Resolved Plan to address problem: A: S/P D&C for Missed - Doing well Acute blood loss anemia - stable Asymptomatic anemia - stable P: May go home today (2) Acute blood loss anemia Onset Date: 09/18/17 Current Visit: Yes Status: Resolved Subjective - Subjective Date of service: 09/18/17 Principal diagnosis: s/p D&C with hemorrhage Interval history: Pt is feeling well without complaints. Bleeding resolved. Patient reports: appetite normal, voiding normally, pain well controlled, ambulating normally, no nauseated Objective - Vital Signs Latest vital signs: Vital Signs Temp Pulse Resp BP BP Pulse Ox 09/18/17 05:50 18 09/18/17 04:25 98.4 F 108 H 18 108/57 09/18/17 01:27 20 09/18/17 00:29 98.5 F 106 H 18 103/54 99 09/17/17 22:40 98.4 F 90 18 106/60 09/17/17 22:00 98.2 F 88 108/49 09/17/17 21:45 98.7 F 96 H 18 100/54 09/17/17 21:15 98.6 F 98 H 18 101/46 09/17/17 20:45 98 F 92 H 20 107/48 09/17/17 19:15 98 H 18 101/46 09/17/17 17:49 16 09/17/17 17:20 97.8 F 104 H 16 99/54 100 09/17/17 17:15 97.8 F 97 H 14 99/54 100 09/17/17 16:55 92 H 16 106/54 100 09/17/17 16:49 16 09/17/17 16:40 95 H 15 108/54 100 09/17/17 16:25 98.0 F 90 14 119/75 100 09/17/17 16:10 89 14 116/67 100 09/17/17 15:55 86 15 137/59 100 09/17/17 15:40 91 H 15 115/75 100 09/17/17 15:35 67 15 138/83 100 09/17/17 15:30 58 L 13 138/84 100 09/17/17 15:22 96.8 F L 48 L 15 126/80 100 09/17/17 13:46 99.3 F 94 H 16 111/63 100 09/17/17 13:30 99.3 F 94 H 16 111/63 100 Intake and Output 09/17/17 09/18/17 09/18/17 22:59 06:59 14:59 Intake Total 1740 480 Output Total 600 1600 Balance 1140 -1120 Intake: IV 1250 Oral 240 480 Blood Product 250 Leukoreduced Red Blood 250 Cells Unit [id number] Output: Urine 600 1600 Void 600 1600 Other: Total, Intake Amount 240 240 Total, Output Amount 600 600 # Voids Void 1 1 - Exam Cardiovascular: Present: Regular rate Lungs: Present: Clear to auscultation Abdomen: Present: normal appearance, soft Extremities: Present: normal - Labs Labs: Abnormal lab results 09/17/17 09/17/17 09/17/17 Range/Units 13:20 15:36 15:36 WBC (4.5-11.0) K/mm3 RBC 3.63 L 2.91 L (3.65-5.03) M/mm3 Hgb 9.0 L (10.1-14.3) gm/dl Hct 27.5 L D (30.3-42.9) % RDW 12.5 L 12.2 L (13.2-15.2) % Lymph % (Auto) 40.5 H (13.4-35.0) % Eos % (Auto) 5.3 H (0.0-4.3) % [place] # (0.0-0.8) K/mm3 Seg Neutrophils # (1.8-7.7) K/mm3 Crossmatch See Detail 09/17/17 09/18/17 Range/Units 19:15 02:51 WBC 15.4 H (4.5-11.0) K/mm3 RBC 2.34 L (3.65-5.03) M/mm3 Hgb 7.3 L 7.8 L (10.1-14.3) gm/dl Hct 22.5 L 22.7 L (30.3-42.9) % RDW 12.5 L (13.2-15.2) % Lymph % (Auto) (13.4-35.0) % Eos % (Auto) (0.0-4.3) % [place] # 1.0 H (0.0-0.8) K/mm3 Seg Neutrophils # 10.5 H (1.8-7.7) K/mm3 Crossmatch
[2017-09-18] MEDS: FEOSOL PO SCH (13:33)
[2017-09-18 14:42] VITALS: BP 98/60
== END 2017-09-18 13:15 | disposition home or self-care (01) ==
LOC: OR 12:53 → OB 15:08
PROVIDERS: ADMIT Obstetrics & Gynecology; ATTEND Obstetrics & Gynecology
DX: O02.0 Blighted ovum and nonhydatidiform mole (principal); O99.011 Anemia complicating pregnancy, first trimester; D62 Acute posthemorrhagic anemia; O99.211 Obesity complicating pregnancy, first trimester; E66.9 Obesity, unspecified; Z68.33 Body mass index [BMI] 33.0-33.9, adult; Z3A.09 9 weeks gestation of pregnancy
CPT/HCPCS: 36415; 36430; 59820; 85014; 85018; 85025; 85027; 86850; 86900; 86901; 86920; 88305; 96374; 96375; G0378; J0690; J1170; J2210; J2250; J2370; J2405; J2704; J7030; J7120; P9016

== ENCOUNTER 2017-10-18 07:47 | Outpatient (CLI) | payer MEDICAID ==
--- NOTE | 2017-10-18 10:04 | Cat Scan Report ---
CT ANGIOGRAM ABDOMEN History: Aneurysm of other specified arteries Technique: Helical CT following IV contrast in 1.25 mm intervals. Sagittal and coronal reformatted images. Rotational MIP images. Three-dimensional volume rendering technique. NASCET criteria were utilized. Findings: The CTA abdomen and pelvis performed on 10/01/17 was reviewed. The left adnexal/pelvic vascular abnormality seen on the previous exam was not included on today's CTA abdomen. The abdominal aorta, celiac axis, SMA, bilateral single renal arteries, EBONY, bilateral common iliac arteries, and proximal bilateral internal and external iliac arteries are widely patent with no evidence of atherosclerotic disease. Stenosis measures less than 10% throughout all these vessels. No dissection or aneurysm is visualized. IMPRESSION: Normal CTA abdomen. Please note the vascular abnormality in the left pelvis seen on 10/01/17 exam was not included in this exam.
--- NOTE | 2017-10-20 15:40 | Vascular Lab Report ---
Upper extremity arterial study Reason for exam: Left upper extremity pain Comments: On the right upper extremity, there are normal triphasic flow velocities at the radial and ulnar arteries. On the left, triphasic waveforms are noted in the upper arm. 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 The radial artery appears to be occluded in the distal portion of the upper arm just after its origin from the brachial artery. The ulnar artery is patent with a normal triphasic waveform. Impression: Normal arterial flow to the right upper extremity. 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 Triphasic waveforms are present low-density ulnar artery in the wrist.
== END 2017-10-18 07:48 | disposition home or self-care (01) ==
LOC: CT 07:47
PROVIDERS: ATTEND Radiology Diagnostic Radiology
DX: I72.8 Aneurysm of other specified arteries (principal); I77.1 Stricture of artery
CPT/HCPCS: 74175; 93931; Q9967

== ENCOUNTER 2017-11-07 12:59 | Emergency (ER) | payer MEDICAID ==
[2017-11-07 13:49] LABS: Basophils # (Auto) 0.1 K/mm3 (0.0-0.1); Basophils % (Auto) 0.4 % (0.0-1.8); Eosinophils % (Auto) 0.1 % (0.0-4.3); Hematocrit 33.1 % (30.3-42.9); Hemoglobin 11.1 gm/dl (10.1-14.3); Lymphocytes # (Auto) 1.4 K/mm3 (1.2-5.4); Lymphocytes % (Auto) 10.1 % (13.4-35.0); Mean Corpuscular HGB Conc 34 % (30-34); Mean Corpuscular Hemoglobin 27 pg (28-32); Mean Corpuscular Volume 80 fl (79-97); Monocytes # (Auto) 0.8 K/mm3 (0.0-0.8); Monocytes % (Auto) 5.7 % (0.0-7.3); Platelet Count 249 K/mm3 (140-440); Red Blood Count 4.15 M/mm3 (3.65-5.03); Red Cell Distribution Width 17.5 % (13.2-15.2)
[2017-11-07 14:00] LABS: Alanine Aminotransferase 18 units/L (7-56); Albumin 4.7 g/dL (3.9-5); BUN/Creatinine Ratio 9; Blood Urea Nitrogen 7 mg/dL (7-17); Hemolysis Index 0
[2017-11-07] MEDS ORDERED: MORPHINE IV ONE (15:08)
[2017-11-07] MEDS ORDERED: ZOFRAN IV ONE (15:08)
[2017-11-07] MEDS ORDERED: NACL 0.9% 1000 ML 1,000 ML IV ONE (15:08)
--- NOTE | 2017-11-07 15:12 | Emergency Department Report ---
ED Abdominal Pain HPI - General Chief Complaint: Abdominal Pain Stated Complaint: ABDOMINAL PAIN Time Seen by Provider: 11/07/17 15:02 Source: patient Mode of arrival: Wheelchair Limitations: No Limitations - History of Present Illness Initial Comments: Patient is 27-year-old female with recent history of miscarriage and D&C after that. Patient presented to the ER complaining cough left lower quadrant pain and suprapubic pain since last night. Patient stated that she is nauseated. She denied any fever or diarrhea. No vaginal discharge but she stated that she has been bleeding since her D&C. Patient denied any urinary symptoms. MD Complaint: abdominal pain -: Last night Location: LLQ, suprapubic Radiation: none Migration to: no migration Severity scale (0 -10): 10 Quality: cramping Consistency: constant - Related Data Previous Rx's Medication Instructions Recorded Last Taken Type Ferrous Sulfate [Feosol 325 MG tab] 325 mg PO BID #60 tablet 09/18/17 Unknown Rx HYDROcodone/APAP 5-325 [[place] 1 each PO Q6H PRN #20 tablet 09/18/17 Unknown Rx 5-325 mg TAB] Ibuprofen [Motrin 600 MG tab] 600 mg PO Q6HR #30 tablet 09/18/17 Unknown Rx oxyCODONE /ACETAMINOPHEN [Percocet 1 tab PO Q6HR PRN #30 tablet 10/01/17 Unknown Rx 5/325 mg] Allergies Allergy/AdvReac Type Severity Reaction Status Date / Time adhesive AdvReac TEARS SKIN Verified 09/17/17 13:59 ED Review of Systems ROS: Stated complaint: ABDOMINAL PAIN Other details as noted in HPI Comment: All other systems reviewed and negative Constitutional: denies: chills, fever Respiratory: denies: cough, orthopnea, shortness of breath, SOB with exertion, SOB at rest, wheezing Cardiovascular: palpitations. denies: chest pain Gastrointestinal: abdominal pain. denies: nausea, vomiting, diarrhea, constipation, hematemesis, melena, hematochezia Genitourinary: abnormal menses. denies: frequency, discharge Musculoskeletal: denies: back pain Neurological: denies: headache, weakness ED Past Medical Hx - Past Medical History Hx Hypertension: No Hx Congestive Heart Failure: No Hx Diabetes: No Hx Deep Vein Thrombosis: No Hx Renal Disease: No Hx Sickle Cell Disease: No Hx Seizures: No Hx Asthma: No Hx COPD: No Hx HIV: No Additional medical history: Vaginal delivery x 1, Miscarriage x 2. anemia - Surgical History Additional Surgical History: x1. D&C with miscarriage - Social History Smoking Status: Never Smoker Substance Use Type: None - Medications Home Medications: Home Medications Medication Instructions Recorded Confirmed Last Taken Type Ferrous Sulfate [Feosol 325 MG tab] 325 mg PO BID #60 tablet 09/18/17 09/29/17 Unknown Rx HYDROcodone/APAP 5-325 [[place] 1 each PO Q6H PRN #20 tablet 09/18/17 09/29/17 Unknown Rx 5-325 mg TAB] Ibuprofen [Motrin 600 MG tab] 600 mg PO Q6HR #30 tablet 09/18/17 09/29/17 Unknown Rx oxyCODONE /ACETAMINOPHEN [Percocet 1 tab PO Q6HR PRN #30 tablet 10/01/17 Unknown Rx 5/325 mg] ED Physical Exam - General Limitations: No Limitations General appearance: alert, in no apparent distress - Head Head exam: Present: atraumatic, normocephalic, normal inspection - Eye Eye exam: Present: normal appearance - ENT ENT exam: Present: normal exam, normal orophraynx, mucous membranes dry - Neck Neck exam: Present: normal inspection, full ROM. Absent: tenderness, meningismus, lymphadenopathy, thyromegaly - Respiratory Respiratory exam: Present: normal lung sounds bilaterally. Absent: respiratory distress, wheezes, rales, rhonchi, stridor, accessory muscle use, decreased breath sounds, prolonged expiratory - Cardiovascular Cardiovascular Exam: Present: tachycardia - GI/Abdominal GI/Abdominal exam: Present: soft, tenderness (left lower quadrant tenderness), normal bowel sounds. Absent: distended, guarding, rebound, rigid, organomegaly , mass, bruit, pulsatile mass, hernia - Extremities Exam Extremities exam: Present: normal inspection, full ROM, normal capillary refill. Absent: tenderness, pedal edema, joint swelling, calf tenderness - Back Exam Back exam: Present: normal inspection, full ROM. Absent: CVA tenderness (R), CVA tenderness (L) - Neurological Exam Neurological exam: Present: alert, oriented X3, CN II-XII intact, normal gait - Skin Skin exam: Present: warm, intact, normal color ED Course Vital Signs 11/07/17 11/07/17 11/07/17 13:08 14:31 14:33 Temperature 98.7 F 100.1 F H Pulse Rate 145 H 116 H Respiratory 18 18 18 Rate Blood Pressure 127/70 Blood Pressure 114/76 [Right] O2 Sat by Pulse 100 98 98 Oximetry - Reevaluation(s) Reevaluation #1: 11/07/17 18:26 Patient stated that she is feeling much better. The abdominal pain resolved. I informed the patient about her CT abdomen and pelvis results and I advised To follow-up with her OB doctor in the next 2-3 days. Patient understood the plan and she stated that she will follow-up with Dr. JIMENEZ. 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 Cystic structure in the left side the next [place] may represent an ovarian cyst versus seroma. No other acute finding. Critical care attestation.: If time is entered above; I have spent that time in minutes in the direct care of this critically ill patient, excluding procedure time. ED Disposition Clinical Impression: Abdominal pain, Ovarian cyst, UTI (urinary tract infection) Disposition: -01 TO HOME OR SELFCARE Is pt being admited?: No Condition: Stable Instructions: Abdominal Pain (ED), Ovarian Cyst (ED), Urinary Tract Infection in Women (ED) Referrals: PRIMARY CARE, [Primary Care Provider] - 3-5 Days
[2017-11-07 17:07] LABS: Bilirubin,Urine NEG (Negative); Blood,Urine MOD (Negative); Color,Urine Yellow (Yellow); Protein,Urine <15 mg/dL mg/dL (Negative); Urobilinogen,Urine < 2.0 mg/dL (<2.0)
[2017-11-07 19:15] VITALS: BP 100/62
--- NOTE | 2017-11-08 14:30 | Cat Scan Report ---
FINAL REPORT EXAM: CT ABDOMEN PELVIS W CON HISTORY: abdominal pain TECHNIQUE: CT of the abdomen and pelvis was performed after the administration of intravenous contrast. Subsequently, CT of the abdomen and pelvis was performed in the delayed phase. Reconstructions were included in the coronal and sagittal planes. PRIORS: CTA of the abdomen and pelvis from 09/30/2017. FINDINGS: Lower thorax: The lung bases are clear. The visualized portions of the heart are normal. Liver: The liver is normal in attenuation. No intrahepatic biliary duct dilation. No focal hepatic lesions. Gallbladder/ biliary system: No cholelithiasis. The common bile duct appears nondilated. Spleen: No splenic lesions are seen. Pancreas: No pancreatic lesions are seen. No pancreatic duct dilation. Kidneys: Small probable simple right renal cyst is seen. No hydronephrosis. No ureteral filling defects. Adrenal glands: No adrenal masses. Vasculature: The abdominal and pelvic vasculature is patent without variant anatomy. Lymph nodes: No enlarged lymph nodes are seen in the abdomen or pelvis. Bowel, mesentery, peritoneum: No bowel obstruction. No free fluid or free air. The appendix is not definitively seen. No inflammatory changes are seen in the right lower quadrant. No colonic diverticulosis. No bowel wall thickening. Urinary bladder: No filling defects are seen. Pelvis: Embolic coils are seen in the left hemipelvis likely related to uterine artery embolization. There is a cystic structure in the left adnexa adjacent to the embolic coils measuring 3.0 x 2.8 centimeters. The uterus and right ovary appear unremarkable. Abdominal wall: No abdominal wall hernia or other subcutaneous findings. Bones: No acute or chronic osseous finding. IMPRESSION: 1. 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 Cystic structure in the left adnexa may represent an ovarian cyst versus seroma. 2. Small probable simple right renal cyst.
== END 2017-11-07 19:40 | disposition home or self-care (01) ==
LOC: ED 12:59
DX: N83.202 Unspecified ovarian cyst, left side (principal); R11.0 Nausea; N39.0 Urinary tract infection, site not specified; R10.32 Left lower quadrant pain; Z88.8 Allergy status to other drugs, medicaments and biological substances
CPT/HCPCS: 36415; 74177; 80053; 81001; 84702; 85025; 86850; 86900; 86901; 96361; 96374; 96375; 99284; J2270; J2405; J7030; Q9967

== ENCOUNTER 2017-11-28 17:52 | Emergency (ER) | payer MEDICAID ==
[2017-11-28 18:20] LABS: Basophils # (Auto) 0.1 K/mm3 (0.0-0.1); Basophils % (Auto) 1.3 % (0.0-1.8); Eosinophils # (Auto) 0.1 K/mm3 (0.0-0.4); Eosinophils % (Auto) 2.8 % (0.0-4.3); Hemoglobin 10.1 gm/dl (10.1-14.3); Lymphocytes # (Auto) 2.3 K/mm3 (1.2-5.4); Lymphocytes % (Auto) 44.4 % (13.4-35.0); Mean Corpuscular HGB Conc 32 % (30-34); Mean Corpuscular Hemoglobin 26 pg (28-32); Mean Corpuscular Volume 82 fl (79-97); Monocytes # (Auto) 0.3 K/mm3 (0.0-0.8); Monocytes % (Auto) 6.4 % (0.0-7.3); Platelet Count 264 K/mm3 (140-440); Red Blood Count 3.89 M/mm3 (3.65-5.03); Red Cell Distribution Width 18.7 % (13.2-15.2)
--- NOTE | 2017-11-28 19:38 | Emergency Department Report ---
ED Female HPI - General Chief complaint: Vaginal Bleeding Stated complaint: BLEEDING Time Seen by Provider: 11/28/17 19:19 Source: patient Mode of arrival: Ambulatory Limitations: No Limitations - History of Present Illness MD Complaint: vaginal bleeding - Related Data Previous Rx's Medication Instructions Recorded Last Taken Type Ferrous Sulfate [Feosol 325 MG tab] 325 mg PO BID #60 tablet 09/18/17 Unknown Rx HYDROcodone/APAP 5-325 [[place] 1 each PO Q6H PRN #20 tablet 09/18/17 Unknown Rx 5-325 mg TAB] Ibuprofen [Motrin 600 MG tab] 600 mg PO Q6HR #30 tablet 09/18/17 Unknown Rx oxyCODONE /ACETAMINOPHEN [Percocet 1 tab PO Q6HR PRN #30 tablet 10/01/17 Unknown Rx 5/325 mg] Ciprofloxacin HCl [Ciprofloxacin 500 mg PO Q12H #14 tab 11/07/17 Unknown Rx TAB] Ondansetron [Zofran Odt] 4 mg PO Q8HR PRN #14 tab.rapdis 11/07/17 Unknown Rx traMADol [Ultram 50 MG tab] 50 mg PO Q4HR PRN #14 tablet 11/07/17 Unknown Rx Allergies Allergy/AdvReac Type Severity Reaction Status Date / Time adhesive AdvReac TEARS SKIN Verified 09/17/17 13:59 ED Review of Systems ROS: Stated complaint: BLEEDING Other details as noted in HPI ED Past Medical Hx - Past Medical History Hx Hypertension: No Hx Congestive Heart Failure: No Hx Diabetes: No Hx Deep Vein Thrombosis: No Hx Renal Disease: No Hx Sickle Cell Disease: No Hx Seizures: No Hx Asthma: No Hx COPD: No Hx HIV: No Additional medical history: Vaginal delivery x 1, Miscarriage x 2. anemia - Surgical History Additional Surgical History: x1. D&C with miscarriage - Social History Smoking Status: Never Smoker Substance Use Type: None - Medications Home Medications: Home Medications Medication Instructions Recorded Confirmed Last Taken Type Ferrous Sulfate [Feosol 325 MG tab] 325 mg PO BID #60 tablet 09/18/17 09/29/17 Unknown Rx HYDROcodone/APAP 5-325 [[place] 1 each PO Q6H PRN #20 tablet 09/18/17 09/29/17 Unknown Rx 5-325 mg TAB] Ibuprofen [Motrin 600 MG tab] 600 mg PO Q6HR #30 tablet 09/18/17 09/29/17 Unknown Rx oxyCODONE /ACETAMINOPHEN [Percocet 1 tab PO Q6HR PRN #30 tablet 10/01/17 Unknown Rx 5/325 mg] Ciprofloxacin HCl [Ciprofloxacin 500 mg PO Q12H #14 tab 11/07/17 Unknown Rx TAB] Ondansetron [Zofran Odt] 4 mg PO Q8HR PRN #14 tab.rapdis 11/07/17 Unknown Rx traMADol [Ultram 50 MG tab] 50 mg PO Q4HR PRN #14 tablet 11/07/17 Unknown Rx ED Physical Exam - General Limitations: No Limitations ED Course Vital Signs 11/28/17 17:57 Temperature 98.5 F Pulse Rate 71 Respiratory 18 Rate Blood Pressure 106/62 O2 Sat by Pulse 100 Oximetry ED Medical Decision Making - Lab Data Result diagrams: 11/28/17 18:06 Critical care attestation.: If time is entered above; I have spent that time in minutes in the direct care of this critically ill patient, excluding procedure time. ED Disposition Condition: Stable Referrals: PRIMARY CARE, [Primary Care Provider] - 3-5 Days
[2017-11-28 19:44] LABS: Bilirubin,Urine NEG (Negative); Blood,Urine LG (Negative); Color,Urine Red (Yellow); Urobilinogen,Urine < 2.0 mg/dL (<2.0)
[2017-11-28 19:45] LABS: RBC,Urine > 182.0 /HPF (0.0-6.0)
[2017-11-28 19:46] LABS: BUN/Creatinine Ratio 10; Blood Urea Nitrogen 7 mg/dL (7-17); Calcium 8.7 mg/dL (8.4-10.2); Hemolysis Index 6
[2017-11-28] MEDS ORDERED: NACL 0.9% 1000 ML 1,000 ML IV ONE (19:50)
[2017-11-28 20:25] LABS: INR 1.01 (0.87-1.13)
[2017-11-28 20:26] LABS: Partial Thromboplastin Time 34.5 Sec. (24.2-36.6)
--- NOTE | 2017-11-28 21:14 | Emergency Department Report ---
ED Female HPI - General Chief complaint: Vaginal Bleeding Stated complaint: BLEEDING Time Seen by Provider: 11/28/17 19:19 Source: patient Mode of arrival: Ambulatory Limitations: No Limitations - History of Present Illness Initial comments: 27 year old female presents to the hospital complaining of continued vaginal bleeding that worsened yesterday since her D&C September 2017. 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 Patient presented with blood in the abdomen and hypotension at that time. Last ER presentation was 11/07/[address] abdomen and pelvis with IV contrast showing postoperative changes related to left uterine pseudoaneurysm and coiling and ovarian cyst vs seroma. - Related Data Previous Rx's Medication Instructions Recorded Last Taken Type RX: Ferrous Sulfate [Feosol 325 MG 325 mg PO BID #60 tablet 09/18/17 Unknown Rx tab] RX: HYDROcodone/APAP 5-325 [[place] 1 each PO Q6H PRN #20 tablet 09/18/17 Unknown Rx 5-325 mg TAB] RX: Ibuprofen [Motrin 600 MG tab] 600 mg PO Q6HR #30 tablet 09/18/17 Unknown Rx RX: oxyCODONE /ACETAMINOPHEN 1 tab PO Q6HR PRN #30 tablet 10/01/17 Unknown Rx [Percocet 5/325 mg] Ciprofloxacin HCl [Ciprofloxacin 500 mg PO Q12H #14 tab 11/07/17 Unknown Rx TAB] Ondansetron [Zofran Odt] 4 mg PO Q8HR PRN #14 tab.rapdis 11/07/17 Unknown Rx RX: traMADol [Ultram 50 MG tab] 50 mg PO Q4HR PRN #14 tablet 11/07/17 Unknown Rx Estrogens, Conjugated [Premarin] 0.625 mg PO QDAY #20 tablet 11/29/17 Unknown Rx Ibuprofen [Motrin] 800 mg PO Q8HR PRN #30 tablet 11/29/17 Unknown Rx Allergies Allergy/AdvReac Type Severity Reaction Status Date / Time adhesive AdvReac TEARS SKIN Verified 09/17/17 13:59 ED Review of Systems ROS: Stated complaint: BLEEDING Other details as noted in HPI ED Past Medical Hx - Past Medical History Hx Hypertension: No Hx Congestive Heart Failure: No Hx Diabetes: No Hx Deep Vein Thrombosis: No Hx Renal Disease: No Hx Sickle Cell Disease: No Hx Seizures: No Hx Asthma: No Hx COPD: No Hx HIV: No Additional medical history: Vaginal delivery x 1, Miscarriage x 2. anemia - Surgical History Additional Surgical History: x1. D&C with miscarriage - Social History Smoking Status: Never Smoker Substance Use Type: None - Medications Home Medications: Home Medications Medication Instructions Recorded Confirmed Last Taken Type RX: Ferrous Sulfate [Feosol 325 MG 325 mg PO BID #60 tablet 09/18/17 09/29/17 Unknown Rx tab] RX: HYDROcodone/APAP 5-325 [[place] 1 each PO Q6H PRN #20 tablet 09/18/17 Unknown Rx 5-325 mg TAB] RX: Ibuprofen [Motrin 600 MG tab] 600 mg PO Q6HR #30 tablet 09/18/17 09/29/17 Unknown Rx RX: oxyCODONE /ACETAMINOPHEN 1 tab PO Q6HR PRN #30 tablet 10/01/17 Unknown Rx [Percocet 5/325 mg] Ciprofloxacin HCl [Ciprofloxacin 500 mg PO Q12H #14 tab 11/07/17 Unknown Rx TAB] Ondansetron [Zofran Odt] 4 mg PO Q8HR PRN #14 tab.rapdis 11/07/17 Unknown Rx RX: traMADol [Ultram 50 MG tab] 50 mg PO Q4HR PRN #14 tablet 11/07/17 Unknown Rx Estrogens, Conjugated [Premarin] 0.625 mg PO QDAY #20 tablet 11/29/17 Unknown Rx Ibuprofen [Motrin] 800 mg PO Q8HR PRN #30 tablet 11/29/17 Unknown Rx ED Physical Exam - General Limitations: No Limitations ED Course Vital Signs 11/28/17 11/28/17 11/28/17 17:57 20:01 20:45 Temperature 98.5 F Pulse Rate 71 83 Respiratory 18 15 22 Rate Blood Pressure 106/62 Blood Pressure 119/71 [Right] O2 Sat by Pulse 100 99 Oximetry - Consultations Consultation #1: 11/28/17 21:00 Case d/w Dr soto madsen kitchen lead. Patient apparently has not been following up as an outpatient as instructed. Based on labs and negative states that patient stable reflexes outpatient quite call to vascular to determine further imaging and management is needed 11/28/17 23:53 Dr. Madsen called back regarding CT results and clearance from vascular. I asked if patient may prescribe Provera for vaginal bleeding and he recommends Premarin 0.625 mg daily for 20 days and follow-up in the office. 11/28/17 21:10 Case d/w Dr Alarcon. Apparently he has spoken to her as well as her mother several times and stresssed the importance of follow-up and patient has not followed up with the office as instructed. They sent an official letter discharging patient from the practice due to lack of compliance. After my call he did evaluate previous CT performed in November 07 confirming successful embolization of uterine artery. Recommends a CT angiogram abdomen and pelvis ( which he was trying to get as an outpatient) to further confirm successful embolization of artery. He also states that patient had doses of left radial artery which was accessed for procedure. Patient complains of some mild intermittent paresthesias but otherwise no significant left hand symptoms 11/28/17 23:[address] Henry, cta angio abd/pelvis unremarkable. No further vascular eval needed ED Medical Decision Making - Lab Data Result diagrams: 11/28/17 18:06 11/28/17 18:06 Lab Results 11/28/17 11/28/17 11/28/17 Range/Units 18:06 18:06 18:06 WBC 5.1 (4.5-11.0) K/mm3 RBC 3.89 (3.65-5.03) M/mm3 Hgb 10.1 (10.1-14.3) gm/dl Hct 32.0 (30.3-42.9) % MCV 82 (79-97) fl MCH 26 L (28-32) pg MCHC 32 (30-34) % RDW 18.7 H (13.2-15.2) % Plt Count 264 (140-440) K/mm3 Lymph % (Auto) 44.4 H (13.4-35.0) % [place] % (Auto) 6.4 (0.0-7.3) % Eos % (Auto) 2.8 (0.0-4.3) % Baso % (Auto) 1.3 (0.0-1.8) % Lymph # 2.3 (1.2-5.4) K/mm3 [place] # 0.3 (0.0-0.8) K/mm3 Eos # 0.1 (0.0-0.4) K/mm3 Baso # 0.1 (0.0-0.1) K/mm3 Seg Neutrophils % 45.1 (40.0-70.0) % Seg Neutrophils # 2.3 (1.8-7.7) K/mm3 PT (12.2-14.9) Sec. INR (0.87-1.13) APTT (24.2-36.6) Sec. Sodium (137-145) mmol/L Potassium (3.6-5.0) mmol/L Chloride (98-107) mmol/L Carbon Dioxide (22-30) mmol/L Anion Gap mmol/L BUN (7-17) mg/dL Creatinine (0.7-1.2) mg/dL Estimated GFR ml/min BUN/Creatinine Ratio % Glucose (65-100) mg/dL Calcium (8.4-10.2) mg/dL HCG, Quant < 2 (0-4) mIU/mL Urine Color (Yellow) Urine Turbidity (Clear) Urine pH (5.0-7.0) Ur Specific [place] (1.003-1.030) Urine Protein (Negative) mg/dL Urine Glucose (UA) (Negative) mg/dL Urine Ketones (Negative) mg/dL Urine Blood (Negative) Urine Nitrite (Negative) Urine Bilirubin (Negative) Urine Urobilinogen (<2.0) mg/dL Ur Leukocyte Esterase (Negative) Urine WBC (Auto) (0.0-6.0) /HPF Urine RBC (Auto) (0.0-6.0) /HPF U Epithel Cells (Auto) (0-13.0) /HPF Blood Type B POSITIVE Antibody Screen Negative 11/28/17 11/28/17 11/28/17 Range/Units 18:06 19:00 20:00 WBC (4.5-11.0) K/mm3 RBC (3.65-5.03) M/mm3 Hgb (10.1-14.3) gm/dl Hct (30.3-42.9) % MCV (79-97) fl MCH (28-32) pg MCHC (30-34) % RDW (13.2-15.2) % Plt Count (140-440) K/mm3 Lymph % (Auto) (13.4-35.0) % [place] % (Auto) (0.0-7.3) % Eos % (Auto) (0.0-4.3) % Baso % (Auto) (0.0-1.8) % Lymph # (1.2-5.4) K/mm3 [place] # (0.0-0.8) K/mm3 Eos # (0.0-0.4) K/mm3 Baso # (0.0-0.1) K/mm3 Seg Neutrophils % (40.0-70.0) % Seg Neutrophils # (1.8-7.7) K/mm3 PT 13.8 (12.2-14.9) Sec. INR 1.01 (0.87-1.13) APTT 34.5 (24.2-36.6) Sec. Sodium 137 (137-145) mmol/L Potassium 3.6 (3.6-5.0) mmol/L Chloride 100.1 (98-107) mmol/L Carbon Dioxide 23 (22-30) mmol/L Anion Gap 18 mmol/L BUN 7 (7-17) mg/dL Creatinine 0.7 (0.7-1.2) mg/dL Estimated GFR > 60 ml/min BUN/Creatinine Ratio 10 % Glucose 92 (65-100) mg/dL Calcium 8.7 (8.4-10.2) mg/dL HCG, Quant (0-4) mIU/mL Urine Color Red (Yellow) Urine Turbidity Clear (Clear) Urine pH 6.0 (5.0-7.0) Ur Specific [place] 1.011 (1.003-1.030) Urine Protein 30 mg/dl (Negative) mg/dL Urine Glucose (UA) Neg (Negative) mg/dL Urine Ketones Neg (Negative) mg/dL Urine Blood Lg (Negative) Urine Nitrite Neg (Negative) Urine Bilirubin Neg (Negative) Urine Urobilinogen < 2.0 (<2.0) mg/dL Ur Leukocyte Esterase Sm (Negative) Urine WBC (Auto) 11.0 H (0.0-6.0) /HPF Urine RBC (Auto) > 182.0 (0.0-6.0) /HPF U Epithel Cells (Auto) 2.0 (0-13.0) /HPF Blood Type Antibody Screen - Radiology Data Radiology results: report reviewed FINAL REPORT PROCEDURE: CT ANGIO ABDOMEN PELVIS TECHNIQUE: Computerized axial tomographic angiography of the abdomen and pelvis was performed after the IV injection of iodinated nonionic contrast. The image data was postprocessed using 2-dimensional multiplanar reformatted (MPR) and 3-dimensional (MIP and/or volume rendered) techniques. HISTORY: hx of uterine pseudoaneurysm COMPARISON: No prior studies are available for comparison. FINDINGS: Abdominal aorta: Normal. Celiac artery: Normal. Superior mesenteric artery: Normal. Left renal artery: Normal. Right renal artery: Normal. Inferior mesenteric artery: Normal Common iliacs: Normal. External iliacs: Normal. Internal iliacs: Normal. Embolization coils are identified along the left lateral aspect of uterus Abdominal and pelvic viscera: Normal. Other: None. IMPRESSION: No evidence of any vascular abnormality - Medical Decision Making Continued vaginal bleeding Patient denies pain and declined offer for pain medication while in ED H&H stable, vital signs normal, hCG negative Patient will be started on Premarin as directed by [facility] follow-up encouraged History of uterine artery embolization status post aneurysm the emergency CT angiogram abdomen and pelvis reveal successful and gestation without complication Case discussed with vascular patient cleared and has been recently discharged from their practice Patient has a mild urine increased RBC count but a lot of blood. I suspect this is a contaminated sample patient does not have urinary symptoms Therefore she will not be treated for UTI. Follow-up will be re-encouraged - Differential Diagnosis menorrhagia, anemia, uterine embolization complication, Critical Care Time: No Critical care attestation.: If time is entered above; I have spent that time in minutes in the direct care of this critically ill patient, excluding procedure time. ED Disposition Clinical Impression: Menorrhagia, Status post embolization of uterine artery Disposition: DC- TO HOME OR SELFCARE Is pt being admited?: No Does the pt Need Aspirin: No Condition: Stable Instructions: Menorrhagia (ED) Additional Instructions: Take the medications as prescribed. Please note that Premarin hormone/estrogen prescribed to help decrease your vaginal bleeding however, this may increase your risk for blood clots like all control pills or hormone therapy. This risk is increased in women over 35 years old who smoke and people who have long distance travel with immobilization/decreased movement of legs. Follow- up with your [facility] doctor within 2-3 days. Return if symptoms worsen as indicated by the discharge instructions Prescriptions: Estrogens, Conjugated [Premarin] 0.625 mg PO QDAY #20 tablet Ibuprofen [Motrin] 800 mg PO Q8HR PRN #30 tablet PRN Reason: Pain, Moderate (4-6) Referrals: OSCAR MADSEN MD [Staff Physician] - 2-3 Days Time of Disposition: 00:03
--- NOTE | 2017-11-28 21:31 | Event Note ---
Date: 11/28/[address] Arredondo about Miss Wilkerson. 27 year old AAF who had a left uterine artery pseudoaneurysm s/p coiling but never showed up for post procedural followup appointment despite numerous calls to have her followup. Recent CT in 11/2017 demonstrates thrombosed left uterine artery pseudoaneurysm. Has had low grade since D&C by OBGYN. Recently had 2 weeks of no bleeding. Now bleeding again. Given the last CT which demonstrated thrombosed left uterine pseudoaneurysm, this is likely not a vascular issue. However, since the CT performed in 11/[address] angiogram, I requested a CT angiogram with delayed imaging of the abdomen and pelvis. This will likely confirm the thrombosed left uterine pseudoaneurysm. At that point, the bleeding is related to obstetrical/ gynecological issues and not the treated pseudoaneurysm. Discussed with Dr. Arredondo who will obtain the CT angiogram.
[2017-11-28 21:59] VITALS: BP 119/71
--- NOTE | 2017-11-28 23:26 | Cat Scan Report ---
FINAL REPORT PROCEDURE: CT ANGIO ABDOMEN PELVIS TECHNIQUE: Computerized axial tomographic angiography of the abdomen and pelvis was performed after the IV injection of iodinated nonionic contrast. The image data was postprocessed using 2-dimensional multiplanar reformatted (MPR) and 3-dimensional (MIP and/or volume rendered) techniques. HISTORY: hx of uterine pseudoaneurysm COMPARISON: No prior studies are available for comparison. FINDINGS: Abdominal aorta: Normal. Celiac artery: Normal. Superior mesenteric artery: Normal. Left renal artery: Normal. Right renal artery: Normal. Inferior mesenteric artery: Normal Common iliacs: Normal. External iliacs: Normal. Internal iliacs: Normal. Embolization coils are identified along the left lateral aspect of uterus Abdominal and pelvic viscera: Normal. Other: None. IMPRESSION: No evidence of any vascular abnormality
== END 2017-11-29 00:28 | disposition home or self-care (01) ==
LOC: ED 17:52
DX: N92.0 Excessive and frequent menstruation with regular cycle (principal); D64.9 Anemia, unspecified; Z88.8 Allergy status to other drugs, medicaments and biological substances
CPT/HCPCS: 36415; 74174; 80048; 81001; 84702; 85025; 85610; 85730; 86850; 86900; 86901; 87086; 99284; J7030; Q9967

== ENCOUNTER 2018-02-17 21:55 | Emergency (ER) | payer MEDICAID ==
[2018-02-17 22:04] VITALS: BP 109/76
[2018-02-17 22:52] LABS: Basophils # (Auto) 0.1 K/mm3 (0.0-0.1); Basophils % (Auto) 0.8 % (0.0-1.8); Eosinophils # (Auto) 0.1 K/mm3 (0.0-0.4); Eosinophils % (Auto) 1.5 % (0.0-4.3); Hematocrit 31.7 % (30.3-42.9); Hemoglobin 10.8 gm/dl (10.1-14.3); Lymphocytes # (Auto) 2.8 K/mm3 (1.2-5.4); Lymphocytes % (Auto) 34.3 % (13.4-35.0); Mean Corpuscular HGB Conc 34 % (30-34); Mean Corpuscular Hemoglobin 32 pg (28-32); Mean Corpuscular Volume 93 fl (79-97); Monocytes # (Auto) 0.6 K/mm3 (0.0-0.8); Monocytes % (Auto) 6.8 % (0.0-7.3); Platelet Count 266 K/mm3 (140-440); Red Blood Count 3.42 M/mm3 (3.65-5.03); Red Cell Distribution Width 14.5 % (13.2-15.2)
[2018-02-17 23:10] LABS: Alanine Aminotransferase 11 units/L (7-56); Albumin 4.2 g/dL (3.9-5); BUN/Creatinine Ratio 12; Blood Urea Nitrogen 7 mg/dL (7-17); Hemolysis Index 0
[2018-02-17] MEDS ORDERED: TYLENOL ONE (23:20)
[2018-02-17] MEDS ORDERED: TYLENOL PO ONE (23:25)
[2018-02-17 23:48] LABS: Bacteria,Urine 1+ /HPF (Negative); Bilirubin,Urine NEG (Negative); Blood,Urine LG (Negative); Mucus,Urine 3+ /HPF; Urobilinogen,Urine < 2.0 mg/dL (<2.0)
[2018-02-17 23:49] LABS: Protein,Urine >500 mg/dL (Negative); RBC,Urine > 182.0 /HPF (0.0-6.0)
[2018-02-17 23:50] LABS: Color,Urine Amber (Yellow)
[2018-02-18 01:47] LABS: HCG Qualitative,Urine Positive (Negative)
[2018-02-18] MEDS ORDERED: TYLENOL PO ONE (23:20)
== END 2018-02-18 00:20 | disposition left against medical advice (07) ==
LOC: ED 21:55
DX: R06.02 Shortness of breath (principal); Z53.21 Procedure and treatment not carried out due to patient leaving prior to being seen by health care provider
CPT/HCPCS: 36415; 80053; 81001; 81025; 85025